=== PATIENT | female | born 1935 | race Caucasian/White ===

== ENCOUNTER 2019-12-04 04:34 | Inpatient (IN) | payer MEDICARE, SELFPAY ==
[~2019-12-04] VITALS: Ht 167.6 cm; Wt 65.8 kg
[2019-12-04 04:55] LABS: BASOPHILS 0.2 % (0-2); EOSINOPHILS 1.4 % (0-7); HEMATOCRIT 47.6 % (36.0-48.0); HEMOGLOBIN 16.2 g/dL (12-16); IMMATURE GRANULOCYTES 0.4 % (0-5); LYMPHOCYTES 15.4 % (15-50); MCH 32.1 pg (26.0-34.0); MCV 94.4 fL (80.0-100.0); MEAN PLATELET VOLUME 10.4 fL (7.4-10.4); MONOCYTES 10.7 % (2-11); NEUTROPHILS 71.9 % (40-80); PLATELET COUNT 269 10x3/uL (130-400); RBC 5.04 10x6/uL (4.00-5.40); RDW 13.7 % (11.5-14.5); WBC 10.5 10x3/uL (4.8-10.8)
--- NOTE | 2019-12-04 05:15 | NUR ---
PT LEFT ED VIA STRETCHER FOR CT
[2019-12-04 05:21] LABS: APTT 26.1 SECONDS (22.8-39.4); INR 1.04 (0.85-1.17); PROTIME 13.6 SECONDS (11.6-15.0)
--- NOTE | 2019-12-04 05:28 | NUR ---
PT RETURNED TO ED VIA STRETCHER FROM CT
[2019-12-04 05:32] LABS: CALC OSMOLALITY 295 mosm/kg (275-300); CALCIUM 8.7 mg/dL (8.5-10.1); CARBON DIOXIDE 27.9 mmol/L (21.0-32.0); CHLORIDE - SERUM 102 mmol/L (98-107); CREATININE - SERUM 1.3 mg/dL (0.6-1.3); GLUCOSE 115 mg/dL (74-106); POTASSIUM - SERUM 3.5 mmol/L (3.5-5.1); SODIUM 139 mmol/L (136-145); UREA NITROGEN 59 mg/dL (7-18); eGFR NON AFRICAN AMERICAN 41 mL/min (90-120)
[2019-12-04 05:50] LABS: ALBUMIN 3.3 g/dL (3.4-5.0); ALKALINE PHOSPHATASE 91 U/L (30-120); ALT (SGPT) 53 U/L (10-68); BILIRUBIN - TOTAL 0.89 mg/dL (0.2-1.3); CREATINE KINASE 282 UL (21-215); LIPASE 110 U/L (73-393); MAGNESIUM - SERUM 2.6 mg/dL (1.8-2.4); PRO BNP 2038 pg/mL (0-450); PROTEIN - SERUM 7.4 g/dL (6.4-8.2); THYROID STIMULATING HORMONE 1.76 uIU/mL (0.36-3.74); TROPONIN-I 0.054 ng/mL (0.000-0.060)
[2019-12-04 05:51] LABS: CKMB 2.6 U/L (0.0-3.6)
[2019-12-04] MEDS ORDERED: METOPROLOL TART25 MG (06:34)
[2019-12-04 06:35] VITALS: BP 159/95
--- NOTE | 2019-12-04 07:33 | NUR ---
RECEIVED PATIENT FROM ER, VIA STRETCHER. ACCOMPANIED BY FAMILY. ALERT AND ORIENTED. C/O PAIN TO LOWER BACK. NO S/S OF ACUTE DISTRESS NOTED. VITALS STABLE. IV TO LEFT AC, SL. SITE PATENT WITHOUT REDNESS OR SWELLING. TROPONIN 0.054 THIS AM. DENIES ANY NEEDS AT THIS TIME. CALL LIGHT IN REACH. WILL CONTINUE TO MONITOR.
[2019-12-04 12:08] LABS: NITRITE NEGATIVE (NEGATIVE); SPECIFIC GRAVITY 1.015 (1.005-1.020)
[2019-12-04 12:09] LABS: BILIRUBIN NEGATIVE (NEGATIVE); GLUCOSE NEGATIVE (NEGATIVE); KETONE NEGATIVE (NEGATIVE)
[2019-12-04 12:10] LABS: BACTERIA MANY /hpf (NEGATIVE); EPITHELIAL CELLS 0-5 /hpf (0-5); RED CELLS - URINE 0-5 /hpf (0-5); WHITE CELLS - URINE 0-5 /hpf (NEGATIVE)
[2019-12-04 12:37] VITALS: BP 135/67
[2019-12-04 16:47] VITALS: BP 151/63
[2019-12-04 17:07] VITALS: BP 108/65; BMI 23.4
[2019-12-04 20:00] VITALS: BP 152/61
--- NOTE | 2019-12-04 21:35 | NUR ---
LYING IN BED. ALERT AND ORIENTED X4. C.O PAIN IN BACK. MEDICATED WITH MORPHINE AND ZOFRAN PER ORDER. SALINE LOCK NOTED TO LT AC. TELEMETRY SHOWS SR WITH RATE OF 75. RESP EVEN AND NONLABORED. SR ELEVATED X2. CL IN REACH. BED ALARM IN USE.
[2019-12-04] MEDS ORDERED: LOPRESSOR25 MG PO (23:14)
[2019-12-05] VITALS: BP 142/66
--- NOTE | 2019-12-05 01:45 | NUR ---
BED BATH GIVEN AND COMPLETE LINEN CHANGE PERFORMED. DAUGHTER AT BEDSIDE. CL IN REACH. NO DISTRESS. PUREWICK APPLIED FOR URINARY INCONT.
[2019-12-05 04:00] VITALS: BP 182/71
[2019-12-05 05:21] LABS: BASOPHILS 0.2 % (0-2); EOSINOPHILS 2.6 % (0-7); HEMATOCRIT 42.3 % (36.0-48.0); HEMOGLOBIN 14.5 g/dL (12-16); IMMATURE GRANULOCYTES 0.4 % (0-5); LYMPHOCYTES 20.9 % (15-50); MCH 32.9 pg (26.0-34.0); MCHC 34.3 g/dL (31.0-37.0); MCV 95.9 fL (80.0-100.0); MEAN PLATELET VOLUME 9.9 fL (7.4-10.4); MONOCYTES 11.3 % (2-11); NEUTROPHILS 64.6 % (40-80); PLATELET COUNT 225 10x3/uL (130-400); RBC 4.41 10x6/uL (4.00-5.40); RDW 13.8 % (11.5-14.5); WBC 8.5 10x3/uL (4.8-10.8)
[2019-12-05 05:32] LABS: ALBUMIN 2.7 g/dL (3.4-5.0); BILIRUBIN - TOTAL 0.6 mg/dL (0.2-1.3); CALCIUM 8.8 mg/dL (8.5-10.1); CARBON DIOXIDE 29.5 mmol/L (21.0-32.0); CREATININE - SERUM 1.1 mg/dL (0.6-1.3); POTASSIUM - SERUM 3.5 mmol/L (3.5-5.1); PROTEIN - SERUM 6.4 g/dL (6.4-8.2)
[2019-12-05 09:10] VITALS: BP 111/68
[2019-12-05 12:40] VITALS: BP 148/59
[2019-12-05 13:46] VITALS: BMI 23.4
[2019-12-05 17:15] VITALS: BP 123/63
--- NOTE | 2019-12-05 19:10 | NUR ---
PT LYING IN BED. BED IN LOW SIDE RAILS X2. BED ALARM ON. CL IN REACH. BEDSIDE SHIFT REPORT RECIEVED. RESP EVEN AND UNLABORED. PUREWICK IN PLACE. LUNGS CLEAR. BOWEL ACTIVE X4. WILL CONTINUE TO MONITOR.
[2019-12-05 20:00] VITALS: BP 131/65
[2019-12-06] VITALS: BP 136/76
--- NOTE | 2019-12-06 03:42 | NUR ---
I have reviewed this patient and I concur with the Shift Assessment completed by the Licensed Practical Nurse today this shift.
[2019-12-06 04:00] VITALS: BP 150/81
[2019-12-06 06:56] LABS: BASOPHILS 0.2 % (0-2); EOSINOPHILS 2.1 % (0-7); HEMATOCRIT 43.6 % (36.0-48.0); HEMOGLOBIN 14.3 g/dL (12-16); IMMATURE GRANULOCYTES 0.4 % (0-5); LYMPHOCYTES 19.4 % (15-50); MCH 31.9 pg (26.0-34.0); MCHC 32.8 g/dL (31.0-37.0); MCV 97.3 fL (80.0-100.0); MONOCYTES 12.1 % (2-11); NEUTROPHILS 65.8 % (40-80); PLATELET COUNT 212 10x3/uL (130-400); RBC 4.48 10x6/uL (4.00-5.40); RDW 13.7 % (11.5-14.5); WBC 8.2 10x3/uL (4.8-10.8)
[2019-12-06 07:06] LABS: ANION GAP 8.9 mmol/L (8-16); BILIRUBIN - TOTAL 0.63 mg/dL (0.2-1.3); CALCIUM 8.6 mg/dL (8.5-10.1); CARBON DIOXIDE 29.9 mmol/L (21.0-32.0); POTASSIUM - SERUM 3.8 mmol/L (3.5-5.1); PROTEIN - SERUM 6.1 g/dL (6.4-8.2)
--- NOTE | 2019-12-06 07:40 | NUR ---
I have reviewed this patient and I concur with the Shift Assessment completed by the Licensed Practical Nurse today this shift.
[2019-12-06 11:05] VITALS: BP 201/85
--- NOTE | 2019-12-06 13:08 | NUR ---
Nutrition follow-up: Pt NPO for kyphoplasty today Labs reviewed Wt: 145# RDN will monitor patients diet advancement and tolerance post- surgery. Following.
--- NOTE | 2019-12-06 18:50 | NUR ---
PATIENT AND DAUGHTER STILL WAITING TO GO TO SURGERY AT THIS TIME. PATIENT HAS NO IV AND DOESNT WANT IT STARTED UNTIL SURGERY.
[2019-12-06 18:58] VITALS: BP 130/70
--- NOTE | 2019-12-06 19:30 | NUR ---
PT SITTING UP IN BED WITHOUT DISTRESS, AOX4. DAUGHTER AT BEDSIDE. WAITING FOR SURGERY. REFUSES TO LET THIS NURSE PLACE IV, STATES SHE WANTS TO BE "KNOCKED OUT" FIRST. PUREWICK IN PLACE. DENIES NEEDS. CL IN REACH, WILL CTM
[2019-12-06 20:00] VITALS: BP 140/75
--- NOTE | 2019-12-06 20:00 | NUR ---
PT TAKEN TO SURGERY AT THIS TIME
[2019-12-06 21:42] VITALS: BP 164/67
--- NOTE | 2019-12-06 21:45 | NUR ---
PT BACK FROM SURGERY, SLEEPY. VSS. DENIES PAIN AT THIS TIME. PUREWICK AND TELE PLACED BACK ON PT. 22G IV LEFT WRIST. WILL CTM
[2019-12-07] VITALS: BP 134/71
--- NOTE | 2019-12-07 02:00 | NUR ---
PT HAD TURNED ON SIDE AND PUREWICK CAME OUT. VOIDED IN BED. CHANGED LINENS, PROVIDED MARIANGEL CARE, PLACED NEW PUREWICK. PT BUTTOCKS AND COCCYX EXCORIATED. PLACED CREAM ALL OVER. COMPLAINS OF PAIN TO RIGHT ANKLE ONLY. PLACED ICE PACK OVER ANKLE. DENIES OTHER NEEDS. CL IN REACH, WILL CTM
[2019-12-07 04:00] VITALS: BP 144/65
--- NOTE | 2019-12-07 05:00 | NUR ---
PT STATES RIGHT ANKLE HURTS, RATES PAIN 5/10. SLIGHTL SWOLLEN. PROPPED ON PILLOW, PLACED ICE ON ANKLE AND GAVE NORCO. DENIES OTHER NEEDS, WILL CTM
[2019-12-07 05:02] LABS: BASOPHILS 0.2 % (0-2); EOSINOPHILS 0.5 % (0-7); HEMATOCRIT 42.7 % (36.0-48.0); HEMOGLOBIN 13.8 g/dL (12-16); IMMATURE GRANULOCYTES 0.5 % (0-5); LYMPHOCYTES 10.9 % (15-50); MCH 31.6 pg (26.0-34.0); MCHC 32.3 g/dL (31.0-37.0); MCV 97.7 fL (80.0-100.0); MEAN PLATELET VOLUME 9.8 fL (7.4-10.4); MONOCYTES 8.8 % (2-11); NEUTROPHILS 79.1 % (40-80); PLATELET COUNT 187 10x3/uL (130-400); RBC 4.37 10x6/uL (4.00-5.40); RDW 13.6 % (11.5-14.5)
[2019-12-07 05:22] LABS: WBC 11.1 10x3/uL (4.8-10.8)
[2019-12-07 05:35] LABS: ALBUMIN 2.7 g/dL (3.4-5.0); ANION GAP 7.8 mmol/L (8-16); BILIRUBIN - TOTAL 0.77 mg/dL (0.2-1.3); CALCIUM 8.7 mg/dL (8.5-10.1); CARBON DIOXIDE 31.3 mmol/L (21.0-32.0); CREATININE - SERUM 0.9 mg/dL (0.6-1.3); POTASSIUM - SERUM 4.1 mmol/L (3.5-5.1); PROTEIN - SERUM 6.1 g/dL (6.4-8.2)
[2019-12-07 09:41] VITALS: BP 169/70
--- NOTE | 2019-12-07 12:38 | NUR ---
Rehab Note- Acute Inpatient REhab prescreen order received. THe patient had kyphoplasty procedure 12/05, will await and see the patient's functional mobility post procedure. Will continue to follow at this time. Thank you for this referral! Kelley Carbajal RN Clinical Liaison, [facility] Rehab
--- NOTE | 2019-12-07 13:08 | MORECARE ---
CASE MANAGEMENT DISCHARGE SUMMARY PATIENT: JOSHUA CARO UNIT: [id number] ADM DATE: 12/04/19 AGE: 84 : 35 SEX: F ROOM/BED: D.2210 AUTHOR: NISREENDOC PHYSICIAN: REFERRING PHYSICIAN: KENNEDY MADDEN DO DATE OF SERVICE: 12/07/19 Discharge Plan Patient Name: JOSHUA CARO Facility: [facility]:[place] : 1935 Planned Disposition: Inpatient Rehab Anticipated Discharge Date: Discharge Date: Expected LOS: Initial Reviewer: [email or web address] Initial Review Date: 12/04/2019 Generated: 12/07/19 2:07 pm Comments DCP- Discharge Planning Updated by [email or web address]: Guerita Smalls on 12/07/19 12:[address] Patient Name: JOSHUA CARO Admission Status: ER Accout number: [id number] Admission Date: 12-04-2019 : 1935 Admission Diagnosis:OTH FRACTURE OF T11-T12 VERTEBRA, INIT FOR CLOS FX Attending: KENNEDY MADDEN Current LOS: 3 Anticipated DC Date: Planned Disposition: Inpatient Rehab Primary Insurance: MEDICARE PART A ONLY Discharge Planning Comments: CM met with patient & daughter to complete initial dc planning assessment. CM educated patient on the CM role and verbal consent given by patient to complete assessment. Patient lives at with her daughter where she was independent with her care. At discharge patient plans to return home and feels this is a safe discharge. CM discussed availability of home health, rehab services, and medical equipment. Patient and daughter would like inpatient rehab at [facility]. The daughter works for [employer] and they want a private room if possible. IMM served and explained. NENO signed. I also have sent the referral over to [facility]. The patient has a walker, cane and uses grab bars in the shower. Patient denied known discharge needs at this time. CM will continue to follow and will assist as needed with dc plans/needs. Furnace Converter: Guerita Smalls DCPIA - Discharge Planning Initial Assessment Updated by [email or web address]: Guerita Smalls on 12/07/19 1:00 pm * Is the patient Alert and Oriented? Yes * How many steps to enter\exit or inside your home? * PCP NONE DR SAL'S PRODUCTION TECH * Pharmacy [facility] * Preadmission Environment Home with Family * ADLs Independent * Equipment Cane Grab Bars Rolling Walker * List name and contact numbers for known caregivers / representatives who currently or will assist patient after discharge: TRUONG CARO ( DAUGHTER) [phone] * Verbal permission to speak to the caregivers and representatives has been obtained from the patient. N/A * Community resources currently utilized None * Additional services required to return to the preadmission environment? Yes * Can the patient safely return to the preadmission environment? No * Has this patient been hospitalized within the prior 30 days at any hospital? No External Providers External Provider: [facility] Contact Date: Service Request Date: Service Type: Resolution: Reviewer: Comments: Coverage Notice Reviewer: [email or web address] Waqas Smalls Notice Issued Date-Time: 12/07/2019 12:50 Notice Type: IM Discharge Notice Notice Delivered To: Family Member Relationship to Patient: Daughter Clinical Information Systems Director Name: BONNIE Delivery Method: HAND - Hand Delivered Ceci Days: Prior Verbal Notification: Recipient Understood Notice: Yes Recipient Signature: Yes Med Rec Note Co-signed by Attending: Coverage Notice Comment: IMM Reviewer: [email or web address] Waqas Smalls Notice Issued Date-Time: 12/07/2019 12:50 Notice Type: Patient Choice Letter Notice Delivered To: Family Member Relationship to Patient: Daughter Clinical Information Systems Director Name: BONNIE Delivery Method: HAND - Hand Delivered Ceci Days: Prior Verbal Notification: Recipient Understood Notice: Yes Recipient Signature: Yes Med Rec Note Co-signed by Attending: Coverage Notice Comment: Patient Name: JOSHUA CAOR Page [phone] at 1308 All edits/amendments must be made on the electronic document DICTATION DATE: 12/07/19 1307 INDUSTRIAL DESIGN ENGINEER: SANJANA 12/07/19 1307 RPT#: [id number] DC DATE: STATUS: ADM IN [facility] [address] [place] [address] END OF REPORT
[2019-12-07 13:45] VITALS: BP 173/67
[2019-12-07 16:00] VITALS: BP 211/80
--- NOTE | 2019-12-07 16:44 | NUR ---
OT NOTE: PT COMPLETED BED MOB TASKS WITH SBA. PT USED SIDE RAILS. PT COMPLETED SUPINE TO SIT WITH MIN A. PT COMPLETED UE AROM AXS. [id number] THANK YOU,MEY SAMSON
--- NOTE | 2019-12-07 19:52 | NUR ---
PATIENT IV CLOTTED. REMOVED WITH CATH TIP INTACT. CALL LIGHT WITHIN REACH. FAMILY AT BEDSIDE.
[2019-12-07 20:00] VITALS: BP 149/74
--- NOTE | 2019-12-07 20:30 | NUR ---
PT LYING IN BED SLEEPING WITHOUT DISTRESS, DAUGHTER AT BEDSIDE. LET DAUGHTER KNOW PT HAD MELATONIN ORDERED AND IF SHE WAKES UP I WILL BRING IT FOR HER, VERBALIZED UNDERSTANDING. DAUGHTER STATES SHE WILL NOT BE HERE BETWEEN 8A-3P TOMORROW AND IF ANYTHING IS DECIDED ABOUT HER MOTHER AND REHAB TO CALL HER CELL WHICH IS ON CHART OR WORK NUMBER [phone]
--- NOTE | 2019-12-07 23:58 | NUR ---
DAUGHTER REFUSED VITALS, WOULD LIKE TO LET PT KEEP SLEEPING
[2019-12-08 04:00] VITALS: BP 149/78
[2019-12-08 06:27] LABS: BASOPHILS 0.3 % (0-2); EOSINOPHILS 2.7 % (0-7); HEMATOCRIT 41.9 % (36.0-48.0); HEMOGLOBIN 13.7 g/dL (12-16); IMMATURE GRANULOCYTES 0.4 % (0-5); LYMPHOCYTES 24.8 % (15-50); MCH 31.8 pg (26.0-34.0); MCHC 32.7 g/dL (31.0-37.0); MCV 97.2 fL (80.0-100.0); MEAN PLATELET VOLUME 10.3 fL (7.4-10.4); NEUTROPHILS 61.8 % (40-80); PLATELET COUNT 196 10x3/uL (130-400); RBC 4.31 10x6/uL (4.00-5.40); RDW 13.8 % (11.5-14.5)
[2019-12-08 06:30] LABS: WBC 7.4 10x3/uL (4.8-10.8)
[2019-12-08 07:02] LABS: ALBUMIN 2.6 g/dL (3.4-5.0); ANION GAP 9.8 mmol/L (8-16); BILIRUBIN - TOTAL 0.53 mg/dL (0.2-1.3); CALCIUM 8.7 mg/dL (8.5-10.1); CARBON DIOXIDE 29.1 mmol/L (21.0-32.0); CREATININE - SERUM 0.8 mg/dL (0.6-1.3); POTASSIUM - SERUM 3.9 mmol/L (3.5-5.1); PROTEIN - SERUM 6.2 g/dL (6.4-8.2)
--- NOTE | 2019-12-08 08:10 | NUR ---
PT RESTING IN QUIETLY IN BED. RESP EVEN AND UNLABORED. BANDAIDS AND STERI STRIP INTACT TO LOWER BACK. DENIES FURTHER NEEDS AT THIS TIME. CL WITHIN REACH. ENCOURAGED TO CALL WITH NEEDS. CONTINUE POC
[2019-12-08 08:45] VITALS: BP 180/72
[2019-12-08 13:15] VITALS: BP 183/71
[2019-12-08 17:46] VITALS: BP 176/105
[2019-12-08 20:00] VITALS: BP 175/83
[2019-12-08 20:09] VITALS: BP 149/91
--- NOTE | 2019-12-08 20:10 | NUR ---
LYING IN BED. ALERT AND ORIENTED. CONFUSED AT TIMES. RESP NONLABORED. C/O PAININ RT ANKLE 5 ON PAIN SCALE. BRUISES NOTED TO BUE AND RT ANKLE. MEDICATED WITH NORCO. BANDAID X2 AND STERI STRIPS NOTED TO BACK. TELEMETRY SHOWS SR WITH RATE OF 76. NO IV ACCESS. DAUGHTER AT BEDSIDE. KATHRYN ALARM ON. CL IN REACH.
[2019-12-09] VITALS (7 sets, daily range): BP systolic 128–216; BP diastolic 71–82
--- NOTE | 2019-12-09 03:42 | NUR ---
HAS RESTED WELL THIS SHIFT. DAUGHTER AT BEDSIDE. NO DISTRESS. RESP NONLABORED. CL IN REACH.
[2019-12-09 05:57] LABS: BASOPHILS 0.2 % (0-2); EOSINOPHILS 2.5 % (0-7); HEMATOCRIT 41.3 % (36.0-48.0); HEMOGLOBIN 13.3 g/dL (12-16); IMMATURE GRANULOCYTES 0.4 % (0-5); LYMPHOCYTES 21.7 % (15-50); MCH 31.4 pg (26.0-34.0); MCHC 32.2 g/dL (31.0-37.0); MCV 97.4 fL (80.0-100.0); MEAN PLATELET VOLUME 10.4 fL (7.4-10.4); NEUTROPHILS 64.2 % (40-80); PLATELET COUNT 169 10x3/uL (130-400); RBC 4.24 10x6/uL (4.00-5.40); RDW 13.9 % (11.5-14.5); WBC 8.4 10x3/uL (4.8-10.8)
[2019-12-09 06:37] LABS: ALBUMIN 2.5 g/dL (3.4-5.0); ANION GAP 9.1 mmol/L (8-16); BILIRUBIN - TOTAL 0.55 mg/dL (0.2-1.3); CALCIUM 8.4 mg/dL (8.5-10.1); CARBON DIOXIDE 27.5 mmol/L (21.0-32.0); POTASSIUM - SERUM 3.6 mmol/L (3.5-5.1); PROTEIN - SERUM 5.8 g/dL (6.4-8.2)
--- NOTE | 2019-12-09 10:40 | NUR ---
PT UP IN CHAIR AT BEDSIDE. RESP EVEN ADN UNLABORED. DENIES PAIN AT THIS TIME. DRESSING C/D/I TO BACK. PT WITHOUT IV ACCESS AT THIS TIME. DENIES NEEDS AT THIS TIME. CL WITHIN REACH. ENCOURAGED TO CALL WITH NEEDS. CONTINUE POC
--- NOTE | 2019-12-09 16:30 | NUR ---
PT SITTING UP IN BED, DENIES PAIN. NEHAL STATED THAT SHE NO LONGER WANTS HER MOTHER TO GO TO [facility] AT [facility] FOR REHAB, SHE SAID THAT SHE CALLED AND TALKED TO SOMEONE ON TUESDAY. I SPOKE WITH THE LOADING MACHINE OPERATOR HELPER AND THEY HAVE ALREADY SET UP DISCHARGE FOR REHAB AT [facility]. SHE WOULD LIKE FOR PT TO GO TO REHAB HERE. I CONTACTED LOADING MACHINE OPERATOR HELPER AND LEFT MESSAGE. I INFORMED PT AND DAUGHTER THAT THE NURSE WOULD CONTACT HER TOMORROW WITH INFORMATION.
--- NOTE | 2019-12-09 16:55 | MORECARE ---
CASE MANAGEMENT DISCHARGE SUMMARY PATIENT: JOSHUA CARO UNIT: [id number] ADM DATE: 12/04/19 AGE: 84 : 35 SEX: F ROOM/BED: D.2210 AUTHOR: NISREEN,DOC PHYSICIAN: REFERRING PHYSICIAN: KENNEDY MADDEN DO DATE OF SERVICE: 12/09/19 Discharge Plan Patient Name: JOSHUA CARO Facility: [facility]:[place] : 1935 Planned Disposition: Inpatient Rehab Anticipated Discharge Date: Discharge Date: Expected LOS: Initial Reviewer: [email or web address] Initial Review Date: 12/04/2019 Generated: 12/09/19 5:54 pm Comments DCP- Discharge Planning Updated by [id number]: Miriam Ware on 12/09/19 3:[address] CM received notification that patient / daughter is wanting Inpatient rehab here at [facility]. CM checked orders and a rehab prescreen is in along with PT / OT. CM is not sure if patient's insurance covers rehab therapy. CM did speak to Lizzeth with [facility] today and she stated they would re-eval on Tuesday. DCP- Discharge Planning Updated by [email or web address]: Guerita Slim on 12/07/19 12:[address] Patient Name: JOSHUA CARO Admission Status: ER Accout number: [id number] Admission Date: 12-04-2019 : 1935 Admission Diagnosis:OTH FRACTURE OF T11-T12 VERTEBRA, INIT FOR CLOS FX Attending: KENNEDY MADDEN Current LOS: 3 Anticipated DC Date: Planned Disposition: Inpatient Rehab Primary Insurance: MEDICARE PART A ONLY Discharge Planning Comments: CM met with patient & daughter to complete initial dc planning assessment. CM educated patient on the CM role and verbal consent given by patient to complete assessment. Patient lives at with her daughter where she was independent with her care. At discharge patient plans to return home and feels this is a safe discharge. CM discussed availability of home health, rehab services, and medical equipment. Patient and daughter would like inpatient rehab at [facility]. The daughter works for [employer] and they want a private room if possible. IMM served and explained. NENO signed. I also have sent the referral over to [facility]. The patient has a walker, cane and uses grab bars in the shower. Patient denied known discharge needs at this time. CM will continue to follow and will assist as needed with dc plans/needs. Metallurgical Lab Technician: Guerita Smalls DCPIA - Discharge Planning Initial Assessment Updated by [email or web address]: Guerita Smalls on 12/07/19 1:00 pm * Is the patient Alert and Oriented? Yes * How many steps to enter\exit or inside your home? * PCP NONE DR SAL'S ELECTRONIC TECHNOLOGIST * [facility] * Preadmission Environment Home with Family * ADLs Independent * Equipment Cane Grab Bars Rolling Walker * List name and contact numbers for known caregivers / representatives who currently or will assist patient after discharge: TRUONG CARO ( DAUGHTER) [phone] * Verbal permission to speak to the caregivers and representatives has been obtained from the patient. N/A * Community resources currently utilized None * Additional services required to return to the preadmission environment? Yes * Can the patient safely return to the preadmission environment? No * Has this patient been hospitalized within the prior 30 days at any hospital? No Coverage Notice Reviewer: [id number] Waqas Smalls Notice Issued Date-Time: 12/07/2019 12:50 Notice Type: IM Discharge Notice Notice Delivered To: Family Member Relationship to Patient: Daughter Nut Former Name: BONNIE Delivery Method: HAND - Hand Delivered Ceci Days: Prior Verbal Notification: Recipient Understood Notice: Yes Recipient Signature: Yes Med Rec Note Co-signed by Attending: Coverage Notice Comment: IMM Reviewer: [id number] Waqas Smalls Notice Issued Date-Time: 12/07/2019 12:50 Notice Type: Patient Choice Letter Notice Delivered To: Family Member Relationship to Patient: Daughter Nut Former Name: BONNIE Delivery Method: HAND - Hand Delivered Ceci Days: Prior Verbal Notification: Recipient Understood Notice: Yes Recipient Signature: Yes Med Rec Note Co-signed by Attending: Coverage Notice Comment: Last DP export: 12/07/19 12:08 p Patient Name: JOSHUA CARO Page [id number] at 1656 All edits/amendments must be made on the electronic document DICTATION DATE: 12/09/191653 BED BUG EXTERMINATOR: SANJANA 12/09/191653 RPT#: [id number] DC DATE: STATUS: ADM IN [facility] [address] [place] [address] END OF REPORT
--- NOTE | 2019-12-09 18:40 | MORECARE ---
CASE MANAGEMENT DISCHARGE SUMMARY PATIENT: JOSHUA CARO UNIT: [id number] ADM DATE: 12/04/19 AGE: 84 : 35 SEX: F ROOM/BED: D.2210 AUTHOR: NISREEN,DOC PHYSICIAN: REFERRING PHYSICIAN: KENNEDY MADDEN DO DATE OF SERVICE: 12/09/19 Discharge Plan Patient Name: JOHSUA CARO Facility: [facility]:[place] : 1935 Planned Disposition: Inpatient Rehab Anticipated Discharge Date: Discharge Date: Expected LOS: Initial Reviewer: [email or web address] Initial Review Date: 12/04/2019 Generated: 12/09/19 7:39 pm Comments DCP- Discharge Planning Updated by [email or web address]: Miriam Ware on 12/09/19 3:[address] CM received notification that patient / daughter is wanting Inpatient rehab here at [facility]. CM checked orders and a rehab prescreen is in along with PT / OT. CM is not sure if patient's insurance covers rehab therapy. CM did speak to Lizzeth with [facility] today and she stated they would re-eval on Tuesday. DCP- Discharge Planning Updated by [email or web address]: Guerita Slim on 12/07/19 12:[address] Patient Name: JOSHUA CARO Admission Status: ER Accout number: [id number] Admission Date: 12-04-2019 : 1935 Admission Diagnosis:OTH FRACTURE OF T11-T12 VERTEBRA, INIT FOR CLOS FX Attending: KENNEDY MADDEN Current LOS: 3 Anticipated DC Date: Planned Disposition: Inpatient Rehab Primary Insurance: MEDICARE PART A ONLY Discharge Planning Comments: CM met with patient & daughter to complete initial dc planning assessment. CM educated patient on the CM role and verbal consent given by patient to complete assessment. Patient lives at with her daughter where she was independent with her care. At discharge patient plans to return home and feels this is a safe discharge. CM discussed availability of home health, rehab services, and medical equipment. Patient and daughter would like inpatient rehab at [facility]. The daughter works for [employer] and they want a private room if possible. IMM served and explained. NENO signed. I also have sent the referral over to [facility]. The patient has a walker, cane and uses grab bars in the shower. Patient denied known discharge needs at this time. CM will continue to follow and will assist as needed with dc plans/needs. Flotation Tender: Guerita Smalls DCPIA - Discharge Planning Initial Assessment Updated by [email or web address]: Guerita Smalls on 12/07/19 1:00 pm * Is the patient Alert and Oriented? Yes * How many steps to enter\exit or inside your home? * PCP NONE DR SAL'S URINALYSIS TECHNICIAN * [facility] * Preadmission Environment Home with Family * ADLs Independent * Equipment Cane Grab Bars Rolling Walker * List name and contact numbers for known caregivers / representatives who currently or will assist patient after discharge: TRUONG CARO ( DAUGHTER) [phone] * Verbal permission to speak to the caregivers and representatives has been obtained from the patient. N/A * Community resources currently utilized None * Additional services required to return to the preadmission environment? Yes * Can the patient safely return to the preadmission environment? No * Has this patient been hospitalized within the prior 30 days at any hospital? No Coverage Notice Reviewer: [id number] Waqas Smalls Notice Issued Date-Time: 12/07/2019 12:50 Notice Type: IM Discharge Notice Notice Delivered To: Family Member Relationship to Patient: Daughter Computer Equipment Repairer Name: BONNIE Delivery Method: HAND - Hand Delivered Ceci Days: Prior Verbal Notification: Recipient Understood Notice: Yes Recipient Signature: Yes Med Rec Note Co-signed by Attending: Coverage Notice Comment: IMM Reviewer: [id number] Waqas Smalls Notice Issued Date-Time: 12/07/2019 12:50 Notice Type: Patient Choice Letter Notice Delivered To: Family Member Relationship to Patient: Daughter Computer Equipment Repairer Name: BONNIE Delivery Method: HAND - Hand Delivered Ceci Days: Prior Verbal Notification: Recipient Understood Notice: Yes Recipient Signature: Yes Med Rec Note Co-signed by Attending: Coverage Notice Comment: Last DP export: 12/09/19 3:55 p Patient Name: JOSHUA CARO Page [phone] at 1840 All edits/amendments must be made on the electronic document DICTATION DATE: 12/09/191838 REAL ESTATE ADMINISTRATOR: SANJANA 12/09/191838 RPT#: [id number] DC DATE: STATUS: ADM IN [facility] [address] [place] [id number] END OF REPORT
--- NOTE | 2019-12-09 19:55 | NUR ---
ALERT AND ORIENTED TO SELF AND PLACE. CONFUSED AT TIMES. DAUGHTER AT BEDSIDE. RESP EVEN AND NONLABORED. RATES PAIN IN BACK AND RT ANKLE 4. MEDICATED WITH NORCO ORDERED. PUREWICK CATH IN PLACE WITH DARK YELLOW URINE NOTED. TELEMETRY SHOWS SR WITH RATE OF 76. NO IV ACCESS. BRUISES NOTED TO BUE AND RT FOOT. SR ELEVATED X2. CL IN REACH. NO DISTRESS. BED ALARM IN USE FOR PT SAFETY.
[2019-12-10] VITALS: BP 145/74
--- NOTE | 2019-12-10 03:00 | NUR ---
LYING IN BED WITH EYES CLOSED. RESP NONLABORED. DAUGHTER AT BEDSIDE. NO DISTRESS. CL IN REACH.
[2019-12-10 04:00] VITALS: BP 117/75
--- NOTE | 2019-12-10 04:54 | NUR ---
MEDICATED WITH NORCO FOR C/O BACK AND HIP PAIN. CL IN REACH. DAUGHTER AT BEDSIDE
[2019-12-10 05:01] LABS: BASOPHILS 0.1 % (0-2); EOSINOPHILS 0.5 % (0-7); HEMATOCRIT 40.6 % (36.0-48.0); HEMOGLOBIN 13.5 g/dL (12-16); IMMATURE GRANULOCYTES 0.7 % (0-5); MCH 31.9 pg (26.0-34.0); MCHC 33.3 g/dL (31.0-37.0); MEAN PLATELET VOLUME 10.4 fL (7.4-10.4); MONOCYTES 9.7 % (2-11); PLATELET COUNT 157 10x3/uL (130-400); RBC 4.23 10x6/uL (4.00-5.40); RDW 13.7 % (11.5-14.5)
[2019-12-10 05:10] LABS: WBC 13.4 10x3/uL (4.8-10.8)
[2019-12-10 05:30] LABS: ALBUMIN 2.5 g/dL (3.4-5.0); ANION GAP 7.5 mmol/L (8-16); BILIRUBIN - TOTAL 1.01 mg/dL (0.2-1.3); CALCIUM 8.3 mg/dL (8.5-10.1); CARBON DIOXIDE 28.1 mmol/L (21.0-32.0); CREATININE - SERUM 0.9 mg/dL (0.6-1.3); POTASSIUM - SERUM 3.6 mmol/L (3.5-5.1)
--- NOTE | 2019-12-10 06:37 | NUR ---
LYING IN BED. DAUGHTER AT BEDSIDE. PT TALKING TO DAUGHTER BUT DROWSY. NO DISTRESS. CL IN REACH.
[2019-12-10 08:27] VITALS: BP 149/86
[2019-12-10 10:50] VITALS: Ht 167.6 cm; Wt 65.8 kg
[2019-12-10 12:41] VITALS: BP 137/72
[2019-12-10] MEDS ORDERED: PROTONIX40 MG PO (14:50)
[2019-12-10] MEDS ORDERED: HYDROCODON-ACE1 EA10 PO (14:50)
[2019-12-10] MEDS ORDERED: COLACE100 MG PO (14:50)
[2019-12-10] MEDS ORDERED: ZOFRAN INJ IV (14:50)
[2019-12-10] MEDS ORDERED: MELATONIN 3 MG1 TAB PO (14:50)
[2019-12-10] MEDS ORDERED: ROCEPHIN 1 GM/D51 G1 IV (14:50)
--- NOTE | 2019-12-10 15:17 | NUR ---
OT NOTE: SIMPLE GROOMING IE WASHING FACE AND HANDS WITH SET UP; MOD ASSIST WITH TOILET HYGIENE; WORKED ON GETTING BACK BRACE PULLED DOWN TO APPROPRIATE LEVEL; PT VERY QUITE BUT COOPERATIVE. FAIR STANDING BALANCE WITH USE OF WALKER DUSTY SANDOVAL, OTR/; 150-131
--- NOTE | 2019-12-10 15:17 | MORECARE ---
CASE MANAGEMENT DISCHARGE SUMMARY PATIENT: JOSHUA CARO UNIT: [id number] ADM DATE: 12/04/19 AGE: 84 : 35 SEX: F ROOM/BED: D.2210 AUTHOR: NISREEN,DOC PHYSICIAN: REFERRING PHYSICIAN: KENNEDY MADDEN DO DATE OF SERVICE: 12/10/19 Discharge Plan Patient Name: JOSHUA CARO Facility: [facility]:[place] : 1935 Planned Disposition: Inpatient Rehab Anticipated Discharge Date: Discharge Date: Expected LOS: Initial Reviewer: [email or web address] Initial Review Date: 12/04/2019 Generated: 12/10/19 4:17 pm Comments DCP- Discharge Planning Updated by [id number]: Miriam Ware on 12/09/19 3:[address] CM received notification that patient / daughter is wanting Inpatient rehab here at [facility]. CM checked orders and a rehab prescreen is in along with PT / OT. CM is not sure if patient's insurance covers rehab therapy. CM did speak to Lizzeth with [facility] today and she stated they would re-eval on Tuesday. DCP- Discharge Planning Updated by [email or web address]: Guerita Slim on 12/07/19 12:[address] Patient Name: JOSHUA CARO Admission Status: ER Accout number: [id number] Admission Date: 12-04-2019 : 1935 Admission Diagnosis:OTH FRACTURE OF T11-T12 VERTEBRA, INIT FOR CLOS FX Attending: KENNEDY MADDEN Current LOS: 3 Anticipated DC Date: Planned Disposition: Inpatient Rehab Primary Insurance: MEDICARE PART A ONLY Discharge Planning Comments: CM met with patient & daughter to complete initial dc planning assessment. CM educated patient on the CM role and verbal consent given by patient to complete assessment. Patient lives at with her daughter where she was independent with her care. At discharge patient plans to return home and feels this is a safe discharge. CM discussed availability of home health, rehab services, and medical equipment. Patient and daughter would like inpatient rehab at [facility]. The daughter works for [employer] and they want a private room if possible. IMM served and explained. NENO signed. I also have sent the referral over to [facility]. The patient has a walker, cane and uses grab bars in the shower. Patient denied known discharge needs at this time. CM will continue to follow and will assist as needed with dc plans/needs. Title Vehicle Service Attendant: Guerita Smalls DCPIA - Discharge Planning Initial Assessment Updated by [id number]: Guerita Smalls on 12/07/19 1:00 pm * Is the patient Alert and Oriented? Yes * How many steps to enter\exit or inside your home? * PCP NONE DR SAL'S RUBBER GOODS INSPECTOR TESTER * Pharmacy [facility] * Preadmission Environment Home with Family * ADLs Independent * Equipment Cane Grab Bars Rolling Walker * List name and contact numbers for known caregivers / representatives who currently or will assist patient after discharge: TRUONG CARO ( DAUGHTER) [phone] * Verbal permission to speak to the caregivers and representatives has been obtained from the patient. N/A * Community resources currently utilized None * Additional services required to return to the preadmission environment? Yes * Can the patient safely return to the preadmission environment? No * Has this patient been hospitalized within the prior 30 days at any hospital? No Coverage Notice Reviewer: [id number] Waqas Smalls Notice Issued Date-Time: 12/07/2019 12:50 Notice Type: IM Discharge Notice Notice Delivered To: Family Member Relationship to Patient: Daughter Universal Branch Consultant Name: BONNIE Delivery Method: HAND - Hand Delivered Ceci Days: Prior Verbal Notification: Recipient Understood Notice: Yes Recipient Signature: Yes Med Rec Note Co-signed by Attending: Coverage Notice Comment: IMM Reviewer: [id number] Waqas Smlals Notice Issued Date-Time: 12/07/2019 12:50 Notice Type: Patient Choice Letter Notice Delivered To: Family Member Relationship to Patient: Daughter Universal Branch Consultant Name: BONNIE Delivery Method: HAND - Hand Delivered Ceci Days: Prior Verbal Notification: Recipient Understood Notice: Yes Recipient Signature: Yes Med Rec Note Co-signed by Attending: Coverage Notice Comment: Last DP export: 12/09/19 5:40 p Patient Name: JOSHUA CARO Page [id number] at 1517 All edits/amendments must be made on the electronic document DICTATION DATE: 12/10/19 1501 POLYSOMNOGRAPHY TECH: SANJANA 12/10/19 5058 RPT#: [id number] DC DATE: STATUS: ADM IN [facility] [address] [place] [address] END OF REPORT
--- NOTE | 2019-12-10 15:24 | MORECARE ---
CASE MANAGEMENT DISCHARGE SUMMARY PATIENT: JOSHUA CARO UNIT: [id number] ADM DATE: 12/04/19 AGE: 84 : 35 SEX: F ROOM/BED: D.2210 AUTHOR: NISREEN,DOC PHYSICIAN: REFERRING PHYSICIAN: KENNEDY MADDEN DO DATE OF SERVICE: 12/10/19 Discharge Plan Patient Name: JOSHUA CARO Facility: [facility]:[place] : 1935 Planned Disposition: Inpatient Rehab Anticipated Discharge Date: Discharge Date: Expected LOS: Initial Reviewer: [id number] Initial Review Date: 12/04/2019 Generated: 12/10/19 4:23 pm Comments DCP- Discharge Planning Updated by [id number]: Guerita Smalls on 12/10/19 2:[address] PATIENT WILL BE DISCHARGING TO INPATIENT REHAB AT [facility] TODAY, IMM SERVED AND EXPLAINED. I ATTEPMTED TO CALL THE DAUGHTER, BUT SHE DID NOT ANSWER PATIENT WILL BE DISCHARGING TO INPATINET REHAB AT [facility] DCP- Discharge Planning Updated by [id number]: Miriam Ware on 12/09/19 3:[address] CM received notification that patient / daughter is wanting Inpatient rehab here at [facility]. CM checked orders and a rehab prescreen is in along with PT / OT. CM is not sure if patient's insurance covers rehab therapy. CM did speak to Lizzeth with [facility] today and she stated they would re-eval on Tuesday. DCP- Discharge Planning Updated by [id number]: Guerita Smalls on 12/07/19 12:[address] Patient Name: JOSHUA CARO Admission Status: ER Accout number: [id number] Admission Date: 12-04-2019 : 1935 Admission Diagnosis:OTH FRACTURE OF T11-T12 VERTEBRA, INIT FOR CLOS FX Attending: KENNEDY MADDEN Current LOS: 3 Anticipated DC Date: Planned Disposition: Inpatient Rehab Primary Insurance: MEDICARE PART A ONLY Discharge Planning Comments: CM met with patient & daughter to complete initial dc planning assessment. CM educated patient on the CM role and verbal consent given by patient to complete assessment. Patient lives at with her daughter where she was independent with her care. At discharge patient plans to return home and feels this is a safe discharge. CM discussed availability of home health, rehab services, and medical equipment. Patient and daughter would like inpatient rehab at [facility]. The daughter works for [employer] and they want a private room if possible. IMM served and explained. NENO signed. I also have sent the referral over to [facility]. The patient has a walker, cane and uses grab bars in the shower. Patient denied known discharge needs at this time. CM will continue to follow and will assist as needed with dc plans/needs. Rigger Apprentice: Guerita Smalls DCPIA - Discharge Planning Initial Assessment Updated by [email or web address]: Guerita Smalls on 12/07/19 1:00 pm * Is the patient Alert and Oriented? Yes * How many steps to enter\exit or inside your home? 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 N/A * Community resources currently utilized None * Additional services required to return to the preadmission environment? Yes * Can the patient safely return to the preadmission environment? No * Has this patient been hospitalized within the prior 30 days at any hospital? No Coverage Notice Reviewer: [id number] Waqas Smalls Notice Issued Date-Time: 12/07/2019 12:50 Notice Type: IM Discharge Notice Notice Delivered To: Family Member Relationship to Patient: Daughter Fashion Model Name: BONNIE Delivery Method: HAND - Hand Delivered Ceci Days: Prior Verbal Notification: Recipient Understood Notice: Yes Recipient Signature: Yes Med Rec Note Co-signed by Attending: Coverage Notice Comment: IMM Reviewer: [id number] Waqas Smalls Notice Issued Date-Time: 12/07/2019 12:50 Notice Type: Patient Choice Letter Notice Delivered To: Family Member Relationship to Patient: Daughter Fashion Model Name: BONNIE Delivery Method: HAND - Hand Delivered Ceci Days: Prior Verbal Notification: Recipient Understood Notice: Yes Recipient Signature: Yes Med Rec Note Co-signed by Attending: Coverage Notice Comment: Reviewer: [id number] Smalls Notice Issued Date-Time: 12/10/2019 15:10 Notice Type: IM Discharge Notice Notice Delivered To: Patient Relationship to Patient: Fashion Model Name: Delivery Method: HAND - Hand Delivered Ceci Days: Prior Verbal Notification: Recipient Understood Notice: Yes Recipient Signature: Yes Med Rec Note Co-signed by Attending: Coverage Notice Comment: Last DP export: 12/10/19 2:17 p Patient Name: JOSHUA CARO Page [phone] at 1524 All edits/amendments must be made on the electronic document DICTATION DATE: 12/10/19 1524 SUPERVISOR TREE TRIMMING: SANJANA 12/10/19 1524 RPT#: [id number] DC DATE: STATUS: ADM IN [facility] [address] [place] [address] END OF REPORT
--- NOTE | 2019-12-10 15:50 | NUR ---
OT NOTE: PT COMPLETED SUPINE TO SIT WITH CGA/MIN A. PT COMPLETED EOB SITTING WITH SBA. PT REQUIRED MAX A WITH MEG BACKBRACE. PT COMPLETED ADL MOB WITH R/W WITH CGA. PT C/O PAIN . NURSING AWARE. PT REQUIRED MAX A TO MEG SOCKS. [phone] THANK YOU,MEY SAMSON
[2019-12-10 16:46] VITALS: BP 173/85
--- NOTE | 2019-12-10 18:46 | NUR ---
IV THERAPY RESTARTED TO LEFT FOREARM WITH A 22G TOLERATED WELL. CL IN REACH. BED ALARM ON. WCTM
--- NOTE | 2019-12-11 10:30 | MORECARE ---
CASE MANAGEMENT DISCHARGE SUMMARY PATIENT: JOSHUA CARO UNIT: [id number] ADM DATE: 12/04/19 AGE: 84 : 35 SEX: F ROOM/BED: D.2210 AUTHOR: SOLANGE NIELSON PHYSICIAN: REFERRING PHYSICIAN: KENNEDY MADDEN DO DATE OF SERVICE: 12/11/19 Discharge Plan Patient Name: JOSHUA CARO Facility: [facility]:[place] : 1935 Planned Disposition: Inpatient Rehab Anticipated Discharge Date: Discharge Date: 12/10/2019 Expected LOS: Initial Reviewer: [email or web address] Initial Review Date: 12/04/2019 Generated: 12/11/19 11:29 am Comments DCP- Discharge Planning Updated by [id number]: Guerita Smalls on 12/10/19 2:[address] PATIENT WILL BE DISCHARGING TO INPATIENT REHAB AT [facility] TODAY, IMM SERVED AND EXPLAINED. I ATTEPMTED TO CALL THE DAUGHTER, BUT SHE DID NOT ANSWER PATIENT WILL BE DISCHARGING TO INPATINET REHAB AT [facility] DCP- Discharge Planning Updated by [email or web address]: Miriam Ware on 12/09/19 3:[address] CM received notification that patient / daughter is wanting Inpatient rehab here at [facility]. CM checked orders and a rehab prescreen is in along with PT / OT. CM is not sure if patient's insurance covers rehab therapy. CM did speak to Lizzeth with [facility] today and she stated they would re-eval on Tuesday. DCP- Discharge Planning Updated by [id number]: Guerita Smalls on 12/07/19 12:[address] Patient Name: JOSHUA CARO Admission Status: ER Accout number: [id number] Admission Date: 12-04-2019 : 1935 Admission Diagnosis:OTH FRACTURE OF T11-T12 VERTEBRA, INIT FOR CLOS FX Attending: KENNEDY MADDEN Current LOS: 3 Anticipated DC Date: Planned Disposition: Inpatient Rehab Primary Insurance: MEDICARE PART A ONLY Discharge Planning Comments: CM met with patient & daughter to complete initial dc planning assessment. CM educated patient on the CM role and verbal consent given by patient to complete assessment. Patient lives at with her daughter where she was independent with her care. At discharge patient plans to return home and feels this is a safe discharge. CM discussed availability of home health, rehab services, and medical equipment. Patient and daughter would like inpatient rehab at [facility]. The daughter works for [employer] and they want a private room if possible. IMM served and explained. NENO signed. I also have sent the referral over to [facility]. The patient has a walker, cane and uses grab bars in the shower. Patient denied known discharge needs at this time. CM will continue to follow and will assist as needed with dc plans/needs. Morning News Anchor: Guerita Smalls DCPIA - Discharge Planning Initial Assessment Updated by [email or web address]: Guerita Smalls on 12/07/19 1:00 pm * Is the patient Alert and Oriented? Yes * How many steps to enter\exit or inside your home? 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 N/A * Community resources currently utilized None * Additional services required to return to the preadmission environment? Yes * Can the patient safely return to the preadmission environment? No * Has this patient been hospitalized within the prior 30 days at any hospital? No Coverage Notice Reviewer: [id number] Waqas Smalls Notice Issued Date-Time: 12/07/2019 12:50 Notice Type: IM Discharge Notice Notice Delivered To: Family Member Relationship to Patient: Daughter Mail Clerk Bills Name: BONNIE Delivery Method: HAND - Hand Delivered Ceci Days: Prior Verbal Notification: Recipient Understood Notice: Yes Recipient Signature: Yes Med Rec Note Co-signed by Attending: Coverage Notice Comment: IMM Reviewer: [email or web address] Waqas Smalls Notice Issued Date-Time: 12/07/2019 12:50 Notice Type: Patient Choice Letter Notice Delivered To: Family Member Relationship to Patient: Daughter Mail Clerk Bills Name: BONNIE Delivery Method: HAND - Hand Delivered Ceci Days: Prior Verbal Notification: Recipient Understood Notice: Yes Recipient Signature: Yes Med Rec Note Co-signed by Attending: Coverage Notice Comment: Reviewer: [id number] Hennessyken Notice Issued Date-Time: 12/10/2019 15:10 Notice Type: IM Discharge Notice Notice Delivered To: Patient Relationship to Patient: Mail Clerk Bills Name: Delivery Method: HAND - Hand Delivered Ceci Days: Prior Verbal Notification: Recipient Understood Notice: Yes Recipient Signature: Yes Med Rec Note Co-signed by Attending: Coverage Notice Comment: Last DP export: 12/10/19 2:24 p Patient Name: JOSHUA CARO Page [phone] at 1030 All edits/amendments must be made on the electronic document DICTATION DATE: 12/11/19 1029 TECHNICAL CUSTOMER SUPPORT SPECIALIST: SANJANA 12/11/19 1029 RPT#: [id number] DC DATE:12/10/19 STATUS: DIS IN [facility] [address] [place] [address] END OF REPORT
--- NOTE | 2019-12-11 13:10 | OP ---
PATIENT NAME: JOSHUA CARO MEDICAL RECORD: [id number] :35 LOCATION:D.MS Do221Gloria ADMISSION DATE:12/04/19 SURGEON: VICENTE ZUNIGA MD DATE OF OPERATION: 12/04/2019 PREOPERATIVE DIAGNOSIS: T12 and L1 osteoporotic compression fractures. POSTOPERATIVE DIAGNOSIS: T12 and L1 osteoporotic compression fractures. PROCEDURE: T12 and L1 kyphoplasties. SURGEON: Vicente Zuniga MD DESCRIPTION AND TECHNIQUE: After induction of general endotracheal anesthesia, the patient was rolled prone on chest and hip rolls. The thoracic spine was prepped and draped in the usual sterile fashion as was the lumbar spine. After infiltration of 1:100,000 epinephrine and 1% lidocaine, a stab incision was created at T12 and L1, just lateral to the pedicle and just superior. Each pedicle at T12 and L1 was cannulated with a Jamshidi needle under fluoroscopic control. Bone drill was advanced through each cannula and then a kyphoplasty balloon was advanced through the cannula. The balloon was inflated under fluoroscopic control, then deflated. The void created was backfilled with methyl methacrylate bone cement. There was good position of the cement on fluoroscopic x-ray. The cannulae were removed. The patient was awakened in good condition, taken to recovery. All counts were reported as correct. Estimated blood loss was minimal. TRANSINT:[id number] Voice Confirmation ID: [id number] DOCUMENT ID: [id number] VICENTE ZUNIGA MD at 1310 CC: [id number] DICTATION DATE: 12/10/19 0949 CONSUMER LOAN OFFICER: 12/10/192105 DIS IN 12/10/19 [facility] [address] [place] [address]
== END 2019-12-10 18:51 | DRG 958 ==
LOC: D.ER 04:34 → D.MS 06:40
PROVIDERS: Family Medicine; ADMIT Family Medicine; ATTEND Family Medicine
PROC: 0PS43ZZ Reposition Thoracic Vertebra, Percutaneous Approach (ICD-10-PCS; principal; 2019-12-04)
PROC: 0PU43JZ Supplement Thoracic Vertebra with Synthetic Substitute, Percutaneous Approach (ICD-10-PCS; 2019-12-04)
PROC: 0QS03ZZ Reposition Lumbar Vertebra, Percutaneous Approach (ICD-10-PCS; 2019-12-04)
PROC: 0QU03JZ Supplement Lumbar Vertebra with Synthetic Substitute, Percutaneous Approach (ICD-10-PCS; 2019-12-04)
DX: S22.089A Unspecified fracture of T11-T12 vertebra, initial encounter for closed fracture (principal); S24.154A Other incomplete lesion at T11-T12 level of thoracic spinal cord, initial encounter; S27.899A Unspecified injury of other specified intrathoracic organs, initial encounter; S32.019A Unspecified fracture of first lumbar vertebra, initial encounter for closed fracture; N39.0 Urinary tract infection, site not specified; G72.81 Critical illness myopathy; S22.088A Other fracture of T11-T12 vertebra, initial encounter for closed fracture; I10 Essential (primary) hypertension; K21.9 Gastro-esophageal reflux disease without esophagitis; K58.9 Irritable bowel syndrome, unspecified; R01.1 Cardiac murmur, unspecified

== ENCOUNTER 2019-12-10 18:00 | Inpatient (IN) | payer MEDICARE, SELFPAY ==
[~2019-12-10] VITALS: Ht 167.6 cm; Wt 68.0 kg
--- NOTE | ~2019-12-10 | RHP ---
PATIENT: JOSHUA CARO MEDICAL RECORD: [id number] ACCOUNT: [id number] LOCATION:ACE Do[address] : [birth year] ADMISSION DATE: 12/10/19 REHABILITATION HISTORY AND PHYSICAL EXAMINATION POST ADMISSION PHYSICIAN EXAMINATION ADMITTING DIAGNOSIS: Critical illness myopathy. HISTORY OF PRESENT ILLNESS: The patient is an 84-year-old female patient who is being admitted to the rehab for critical illness myopathy. She presented here on 12/10/2019. 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 The patient is an 84-year-old female patient who presented to the Emergency Room by EMS after experiencing a fall 4 days prior to admit on 12/03. She had slipped and fallen backwards on her right hip. She stated since her fall that she could not ambulate secondary to pain in her back and right hip. The patient had a CT of her lumbar spine without contrast, which showed an acute T12 superior endplate compression fracture with 30% loss of vertebral body height. There was an acute L1 superior endplate retropulsed fragment resulting in some mild canal stenosis. The patient was admitted to the hospital, had cardiology consult during her stay secondary to some abnormal EKGs that were done. The patient was seen by neurosurgery. She underwent kyphoplasty on 12/05 and has been having some pain relief post-procedure. She has been seen in physical and occupational therapy. She has been progressing slowly during her acute hospital stay. She needs to be monitored closely with telemetry. She has had some recent EKG abnormality. She is on IV antibiotics for UTI. She is on an electrolyte protocol. We are monitoring her for proximal weakness, balance deficits, decreased safety awareness, medical complexity, risk for falls and cues for equipment. She has had low endurance, unsteady gait and balance, she fatigues easily, inability to care for herself, and self-care deficits. These are all barriers to her discharge home. She lives at home with her daughter. Was independent with ADLs and mobility prior to this, using a single point cane or rolling walker. She is currently set up for max assist for ADLs, mod assist for mobility. She plans to return home at her prior level of function or better. Comorbidities include weakness, acute T12 superior endplate compression fracture with mildly retropulsed fragments resulting in some stenosis of her spinal canal. 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 She got a heart murmur, hypertension, loss of ADLs, generalized weakness, abnormal EKG. She got a history of hypertension. PAST MEDICAL HISTORY: Significant for hypertension, heart murmur, acid reflux, irritable bowel syndrome. PAST SURGICAL HISTORY: Includes hysterectomy. ALLERGIES: CODEINE. CURRENT MEDICATIONS: Include Rocephin 1 gram q.24 hours. She is on metoprolol 25 mg daily. She is on Zofran 4 mg every 4 hours. She is on Protonix 40 mg daily, melatonin 9 mg at bedtime, [place] 10/325 one tab q.4 hours p.r.n., and Colace 100 mg b.i.d. HABITS: No alcohol or tobacco use. HISTORY AND PHYSICAL [id number] JOSHUA CARO FAMILY HISTORY: Noncontributory. SOCIAL HISTORY: The patient hopes to return back home and get back to her prior level of functioning. REVIEW OF SYSTEMS: GENERAL: Does complain of some weakness and fatigue. HEENT: Denies cold, cough, or congestion. CARDIOVASCULAR: Denies any chest pain. PHYSICAL EXAMINATION: VITAL SIGNS: Stable, afebrile. GENERAL: An elderly female, in no acute distress, alert upon exam. HEENT: Normocephalic, atraumatic. Mucosa moist. NECK: Supple. No lymphadenopathy. LUNGS: Clear in upper rodriguez. No wheezing or rales. HEART: Regular rate and rhythm. She does have a holosystolic murmur. ABDOMEN: Soft, benign, and nondistended. Positive bowel sounds times 4. EXTREMITIES: No clubbing, cyanosis or edema. NEUROLOGIC: She does have proximal muscle weakness. LABORATORY DATA: White count is 15.2, H&H of 13 and 41, and platelet count is noted to be 164. Sodium 137, potassium 4.1, BUN and creatinine of 22 and 0.9, and blood sugar is noted to be 109. ASSESSMENT: This is an 84-year-old female patient admitted to rehab with a working diagnosis of critical illness myopathy. The patient has potential to make improvement. We instituted the following multidisciplinary therapies including, but not limited to physical, occupational, respiratory, speech, nutritional services, prosthetics and orthotics. Given her complex medical condition and risk for more complications, rehabilitation services cannot be provided at a low level of care such as long term facility. PLAN: 1. Admit to [facility] for an inpatient therapy to include the following disciplines: A. Physical therapy to improve gait, all transfer skills and bed mobility to a modified independent level. B. Occupational therapy to a modified independent level. C. Case management to help with discharge planning and placement options. D. Nutrition to assist with nutritional needs. E. Rehabilitation nursing to assist in monitoring the patient's underlying medical conditions and to assist with any type bowel or bladder management. 2. The patient's current medication and medical care will be continued. 3. Place on standard fall precautions. 4. The patient's estimated length of stay is approximately 7-10 days. 5. We will discuss this patient during care team staff meeting this week and will watch her white count closely. TRANSINT:[id number] Voice Confirmation ID: [id number] DOCUMENT ID: [id number] JOSE notes whether there has been none or any medical/functional change since admission: - No change since preadmission screen. HISTORY AND PHYSICAL [id number] JOSHUA CARO attests patient continues to be appropriate for IRF: - Continues to be appropriate. VICENTE CHATTERJEE MD CC: [id number] DICTATION DATE: 12/11/19829 RIM ROLLER SETTER: 12/11/19 0958 ADM IN [facility] [address] [id number]
[~2019-12-10 18:00] MED LIST: COLACE100 MG PO; HYDROCODON-ACE1 EA10 PO; LOPRESSOR25 MG PO; MELATONIN 3 MG1 TAB PO; METOPROLOL TART25 MG; PROTONIX40 MG PO; ROCEPHIN 1 GM/D51 G1 IV; ZOFRAN INJ IV
--- NOTE | 2019-12-10 18:40 | NUR ---
RECEIVED PT TO FLOOR VIA BED ACCOMPANIED BY DAUGHTER AND HOSPITAL STAFF. ORIENTED TO FLOOR, ROOM, BATHROOM AND FUNCTIONS OF REMOTE/NURSE CALL. LEFT FOREARM IV NO REDNESS OR SWELLING NOTED. DRESSING AND SWAB CAP INTACT. ON ROOM AIR. DENIES ANY NEEDS OR PAIN. CALL LIGHT AND WATER WITHIN REACH. FALL PRECAUTIONS IN PLACE. CPOC
[2019-12-10 21:38] VITALS: BP 170/73
[2019-12-10 23:07] VITALS: BP 170/73; BMI 24.2; BMI 25.0
--- NOTE | 2019-12-11 02:44 | NUR ---
PT LYING IN BED EYES CLOSED RESTING QUIETLY. RR EVEN AND UNLABORED. CALL LIGHT WITHIN REACH. FALL PRECAUTIONS IN PLACE. CPOC
[2019-12-11 06:36] LABS: BASOPHILS 0.1 % (0-2); EOSINOPHILS 0.2 % (0-7); HEMOGLOBIN 13.7 g/dL (12-16); IMMATURE GRANULOCYTES 0.4 % (0-5); LYMPHOCYTES 6.5 % (15-50); MCHC 33.4 g/dL (31.0-37.0); MCV 95.8 fL (80.0-100.0); MEAN PLATELET VOLUME 10.6 fL (7.4-10.4); MONOCYTES 8.9 % (2-11); NEUTROPHILS 83.9 % (40-80); PLATELET COUNT 164 10x3/uL (130-400); RBC 4.28 10x6/uL (4.00-5.40); RDW 14.1 % (11.5-14.5); WBC 15.2 10x3/uL (4.8-10.8)
[2019-12-11 06:59] LABS: ANION GAP 15.9 mmol/L (8-16); CALCIUM 8.6 mg/dL (8.5-10.1); CARBON DIOXIDE 24.2 mmol/L (21.0-32.0); CREATININE - SERUM 0.9 mg/dL (0.6-1.3); POTASSIUM - SERUM 4.1 mmol/L (3.5-5.1)
--- NOTE | 2019-12-11 07:56 | NUR ---
SITTING UP IN BED EATING BREAKFAST, DENIES ANY NEEDS AT THIS TIME, C/L AND FLUIDS IN REACH.
[2019-12-11 08:11] VITALS: BP 130/65
--- NOTE | 2019-12-11 09:00 | NUR ---
AWAKE AND ALERT SITTING UP IN BED, DENIES ANY NEEDS AT THIS TIME, ASSESSMENT COMPLETE, C/L AND FLUIDS IN REACH.
--- NOTE | 2019-12-11 10:24 | NUR ---
PATIENT ADMITTED TO REHAB FROM [facility]. DME AT HOME IS A WALKER AND CANE. HER PCP IS DR. ALVARO FARLEY APN. DISCHARGE PLANS ARE FOR PATIENT TO RETURN HOME WITH FAMILY. WILL CONTINUE TO FOLLOW WITH PATIENT.
[2019-12-11 10:49] VITALS: Ht 167.6 cm; Wt 68.0 kg
--- NOTE | 2019-12-11 12:01 | NUR ---
spoke with patient allen, she would like her mother to discharge home on 12/19/19 with [employer] count includes the [facility]. will give daughter a list of private care agencies. will continue to follow with patient.
--- NOTE | 2019-12-11 12:10 | NUR ---
RESTING IN BED WITH EYES CLOSED, RESP EVEN AND UNLABORED, NO S/S OF DISTRESS NOTED, C/L AND FLUIDS IN REACH.
--- NOTE | 2019-12-11 16:16 | NUR ---
UP IN BED WITH SPEECH THERAPY, DENIES ANY NEEDS AT THIS TIME, C/L AND FLUIDS IN REACH.
--- NOTE | 2019-12-11 19:10 | NUR ---
RECEIVED PT LYING IN BED ON LEFT SIDE AWAKE. ALERT AND ORIENTED X4. DENIES ANY PAIN OR NEEDS. NO IV NOTED. WAS INFORMED PT HAS PULLED OUT TWO IV SITES TODAY. PT WILL HAVE TO HAVE IV IN ORDER TO RECEIVE LAST 3 DOSES OF ROCEPHIN. EDUCATED PT ON IMPORTANCE OF KEEPING IV IN, PT STATES SHE DOES NOT MEAN TO PULL OUT HER IV THEY JUST GET CAUGHT AND COME OUT. WILL RESTART IV LATER THIS SHIFT AND SECURE. CALL LIGHT AND WATER WITHIN REACH. FALL PRECAUTIONS IN PLACE. CPOC
[2019-12-11 21:50] VITALS: BP 111/69
--- NOTE | 2019-12-12 00:50 | NUR ---
PT LYING IN BED ON LEFT SIDE EYES CLOSED RESTING QUIETLY. RR EVEN AND UNLABORED. CALL LIGHT AND WATER WITHIN REACH. FALL PRECAUTIONS IN PLACE. CPOC
--- NOTE | 2019-12-12 03:45 | NUR ---
PT LYING IN BED ON RIGHT SIDE EYES CLOSED RESTING QUIETLY. RR EVEN AND UNLABORED. CALL LIGHT WITHIN REACH. FALL PRECAUTIONS IN PLACE. CPOC
[2019-12-12 07:43] LABS: BASOPHILS 0.1 % (0-2); EOSINOPHILS 0.8 % (0-7); HEMOGLOBIN 12.5 g/dL (12-16); IMMATURE GRANULOCYTES 0.4 % (0-5); LYMPHOCYTES 10.2 % (15-50); MCH 31.6 pg (26.0-34.0); MCHC 32.9 g/dL (31.0-37.0); MCV 96.2 fL (80.0-100.0); MEAN PLATELET VOLUME 10.4 fL (7.4-10.4); MONOCYTES 8.1 % (2-11); NEUTROPHILS 80.4 % (40-80); PLATELET COUNT 158 10x3/uL (130-400); RBC 3.95 10x6/uL (4.00-5.40); WBC 13.1 10x3/uL (4.8-10.8)
--- NOTE | 2019-12-12 08:00 | NUR ---
SHIFT ASSMT COMPLETED.
[2019-12-12 08:04] LABS: ANION GAP 14.9 mmol/L (8-16); CALCIUM 8.9 mg/dL (8.5-10.1); CARBON DIOXIDE 22.8 mmol/L (21.0-32.0); CREATININE - SERUM 0.9 mg/dL (0.6-1.3); POTASSIUM - SERUM 3.7 mmol/L (3.5-5.1)
[2019-12-12 08:20] VITALS: BP 149/92
[2019-12-12 08:30] VITALS: BP 132/59
--- NOTE | 2019-12-12 19:05 | NUR ---
RECEIVED PT LYING IN BED ON LEFT SIDE VISITING WITH DAUGHTER. ALERT AND ORIENTED X3. DENIES ANY NEEDS OR PAIN. NO SIGNS OF ACUTE DISTRESS NOTED. CALL LIGHT AND WATER WITHIN REACH. FALL PRECAUTIONS IN PLACE. CPOC
[2019-12-12 21:42] VITALS: BP 127/52
--- NOTE | 2019-12-13 01:04 | NUR ---
PT LYING IN BED EYES CLOSED RESTING QUIETLY RR EVEN AND UNLABORED. CALL LIGHT WITHIN REACH. FALL PRECAUTIONS IN PLACE. CPOC
--- NOTE | 2019-12-13 03:51 | NUR ---
PT LYING IN BED ON LEFT SIDE EYES CLOSED RESTING QUIETLY. RR EVEN AND UNLABORED. CALL LIGHT AND WATER WITHIN REACH. FALL PRECAUTIONS IN PLACE
--- NOTE | 2019-12-13 05:03 | NUR ---
INCONTINENCE CARE PROVIDED. MED URINE INCONTINENCE. BUTTPASTE APPLIED TO BUTTOCKS AND PERIAREA. POSITIONED PT TO LEFT SIDE. DENIES ANY NEEDS OR PAIN. CALL LIGHT AND WATER WITHIN REACH. FALL PRECAUTIONS IN PLACE. CPOC
--- NOTE | 2019-12-13 06:05 | NUR ---
PT LYING IN BED EYES CLOSD RESTING. RR EVEN AND UNLABORED. CALL LIGHT WITHIN REACH. FALL PRECAUTIONS IN PLACE. CPOC
[2019-12-13 08:00] VITALS: BP 126/64
--- NOTE | 2019-12-13 08:00 | NUR ---
SHIFT ASSMT COMPLETED.
--- NOTE | 2019-12-13 12:00 | NUR ---
DAUGHTER HER.ASSISTING WITH LUNCH.
--- NOTE | 2019-12-13 13:09 | NUR ---
SPOKE WITH PATIENT PATIENT DAUGHTER AND SHE WOULD LIKE TO TAKE HER MOTHER HOME ON 12/14/19. WILL CONTINUE TO FOLLOW WITH PATIENT.
--- NOTE | 2019-12-14 03:46 | NUR ---
PT A&O, IN BED AROUSES EASILY TO VOICE, NO NEEDS NOTED, FALL PRECAUTIONS IN PLACE, FLUIDS/CALL LIGHT WITHIN REACH
[2019-12-14 05:36] LABS: BASOPHILS 0.2 % (0-2); EOSINOPHILS 1.4 % (0-7); HEMATOCRIT 36.7 % (36.0-48.0); HEMOGLOBIN 12.1 g/dL (12-16); IMMATURE GRANULOCYTES 0.4 % (0-5); LYMPHOCYTES 9.1 % (15-50); MCH 31.9 pg (26.0-34.0); MCV 96.8 fL (80.0-100.0); MEAN PLATELET VOLUME 10.4 fL (7.4-10.4); MONOCYTES 7.8 % (2-11); NEUTROPHILS 81.1 % (40-80); RBC 3.79 10x6/uL (4.00-5.40); RDW 14.3 % (11.5-14.5); WBC 10.2 10x3/uL (4.8-10.8)
[2019-12-14 05:41] LABS: PLATELET COUNT 194 10x3/uL (130-400)
[2019-12-14 05:52] LABS: ANION GAP 12.7 mmol/L (8-16); CALCIUM 8.7 mg/dL (8.5-10.1); CREATININE - SERUM 0.9 mg/dL (0.6-1.3); POTASSIUM - SERUM 3.7 mmol/L (3.5-5.1)
[2019-12-14 08:00] VITALS: BP 215/87
--- NOTE | 2019-12-14 08:00 | NUR ---
SITTING UP IN BED EATING BREAKFAST, DENIES ANY NEEDS AT THIS TIME, C/L AND FLUIDS IN REACH.
[2019-12-14] MEDS ORDERED: HYDROCODON-ACE1 EA10 PO (10:01)
--- NOTE | 2019-12-14 11:01 | NUR ---
PATIENT D/C VIA W/C WITH DAUGHTER TO HOME, ALL BELONGINGS WITH PATIENT, REVIEWED MEDICATIONS AND HOME HEALTH.
--- NOTE | 2019-12-17 09:44 | NUR ---
PATIENT DISCHARGED HOME Tuesday12/14/19 THAT AFTERNOON. PATIENT HAS NO PCP. WILL SPEAK WITH DAUGHTER ABOUT FINDING A PCP.
== END 2019-12-14 11:00 | disposition home health service (06) | DRG 93 ==
LOC: D.REHAB 18:00
PROVIDERS: ADMIT Emergency Medicine; ATTEND Emergency Medicine
DX: G72.81 Critical illness myopathy (principal); S22.089D Unspecified fracture of T11-T12 vertebra, subsequent encounter for fracture with routine healing; W19.XXXD Unspecified fall, subsequent encounter; I10 Essential (primary) hypertension; R53.1 Weakness; R94.31 Abnormal electrocardiogram [ECG] [EKG]; K21.9 Gastro-esophageal reflux disease without esophagitis; M48.00 Spinal stenosis, site unspecified; R01.1 Cardiac murmur, unspecified; K58.9 Irritable bowel syndrome, unspecified

== ENCOUNTER 2019-12-16 08:52 | Inpatient (IN) | payer MEDICARE ==
[~2019-12-16] VITALS: Ht 167.6 cm; Wt 68.0 kg
--- NOTE | ~2019-12-16 | CN ---
PATIENT NAME:JSOHUA CARO MEDICAL RECORD: [id number] : 35 LOCATION:DFredis D.2127 ADMIT DATE: 12/16/19 ACCOUNT: [id number] CONSULTING PHYSICIAN: CONNIE ALVARADO MD REFERRING PHYSICIAN: VICTOR HUGO BLANCO MD DATE OF CONSULTATION: 12/17/2019 HISTORY OF PRESENT ILLNESS: An 84-year-old lady with a history of hypertension, recent admission for a compression fracture of lumbar spine, was discharged, had a fall at home, admitted and found to be in atrial fibrillation with RVR. No history of atrial fibrillation. She is entirely asymptomatic from this standpoint. We are asked to see her concerning her cardiovascular status. PAST MEDICAL HISTORY: Includes: 1. History of hypertension. 2. Osteoarthritis. 3. Osteoporosis. 4. Gastroesophageal reflux disease. ALLERGIES: CODEINE. MEDICATIONS: Typically include metoprolol 25 b.i.d., Zwingle 10/325 one q.4 p.r.n., Colace 100 mg b.i.d., Protonix 40 mg p.o. daily. SOCIAL HISTORY: Nonsmoker, nondrinker. Has trouble with her ADLs, just came using a cane, questionable walker. Good family support. REVIEW OF SYSTEMS: The patient reports easy bruising but reports no swollen glands. The patient reports no fever, no night sweats, no significant weight gain, no significant weight loss. No significant exercise tolerance. The patient reports no dry eyes, no irritation, no vision change. Patient reports no difficulty hearing and no ear pain. Patient reports no frequent nose bleeds or nose and sinus problems. Patient reports on arm pain on exertion. No shortness of breath while lying down. No history of heart murmur. Patient reports no cough, no wheezing or coughing up blood. Patient reports no abdominal pain, no vomiting. Normal appetite. No diarrhea and not vomiting blood. No nausea and no constipation. Patient reports no incontinence. No difficulty urinating. No hematuria. No increased frequency. Patient reports no muscle aches. No weakness, no arthralgias, no back pain. No swelling of the extremities. Patient reports no abnormal mole, no jaundice, no rashes. Reports no loss of consciousness. No weakness and no numbness. No seizures, dizziness, or headaches. The patient reports no depression, no sleep disturbance, feeling safe in a relationship and no alcohol abuse. Patient reports on fatigue. Reports no runny nose or sinus pressure. No itching, no hives, and no frequent sneezing. PHYSICAL EXAMINATION: GENERAL: Elderly female, in no acute distress. VITAL SIGNS: Blood pressure 189/72, pulse 86 and regular. HEENT: Normocephalic, atraumatic. NECK: No bruits are noted. HEART: Irregular, rate is controlled, II/ systolic ejection murmur. LUNGS: Good air excursion. ABDOMEN: Soft, nontender. EXTREMITIES: Pulses 2+. No edema. CONSULT REPORT [id number] VANIAJOSHUA IMPRESSION: Atrial fibrillation, was in sinus rhythm at least early on last admission. We will add a class III sotalol and hopefully establish normal sinus rhythm. Given overall frail straighten the fact she actually presented to the ER for a fall and the finding of atrial fibrillation was incidental. We would not use DOAC at this point. If remains in fib after loading of sotalol actually I could consider a cardioversion to restore normal sinus rhythm. TRANSINT:[id number] Voice Confirmation ID: [id number] DOCUMENT ID: [id number] CONNIE ALVARADO MD CC: [id number] DICTATION DATE: 12/17/19 1119 VAMP SEAMER: 12/17/19 1415 ADM IN [facility] [address] [place] [address]
--- NOTE | ~2019-12-16 | EC ---
PATIENT:JOSHUA CARO DATE OF SERVICE: 12/16/19 SEX: F MEDICAL RECORD: [id number] DATE OF : 35 LOCATION:D.M2 D.212 AGE OF PATIENT: 84 ADMISSION DATE: 12/16/19 REFERRING PHYSICIAN: INTERPRETING PHYSICIAN: CONNIE ALVARADO MD ECHOCARDIOGRAM REPORT ECHO CHARGES 5 ECHO LIMITED Date: 12/18/19 CLINICAL DIAGNOSIS: NEW ONSET AFIB ECHOCARDIOGRAPHIC MEASUREMENTS (adult normal given) AC root (d.<3.7cm) 0 cm LV Septum d (<1.2 cm> 0 cm Valve Excursion 0 cm LV Septum (systole) 0 cm Left Atria (s.<4.0cm> 0 cm LVPW d(<1.2cm) 0 cm RV (d.<2.3cm) 0 cm LVPW (sytole) 0 cm LV diastole(<5.6CM) 0 cm MV E-F(>70mm/sec) 0 cm LV systole 0 cm LVOT Diameter 0 cm MV exc.(>10mm) 0 cm Est.ejection fraction (50-75%) % DOPPLER: LVIT cm/sec A 0 cm/sec E 0 cm/sec LA 0 cm/sec RVSP 31.8 mmHg LVOT 0 cm/sec AOP1/2T m/s Asc. Ao 0 cm/sec RVOT 0 cm/sec RA 0 cm/sec PA 0 cm/sec AV Gradient Peak 0 mmHg AV Mean 0 mmHg AV Area 0 cm MV Gradient Peak 0 mmHg MV Mean 0 mmHg MV Area 0 cm COMMENTS: Hand Coke Drawer: Lorenzo [facility] Welding Machine Operator Resistance: 3 Dr. Egan TAPE# PACS Pericardial Effusion N DATE OF SERVICE: There limited study includes 2D, color flow. Grossly LVH appears present. LV internal dimensions are normal. Wall motion is normal. EF is greater than or equal to 55%. Aortic valve is tricuspid with good valve excursion. No significant AI. Left atrium grossly appears normal. Mitral valve appears normal with mild MR. Right-sided chambers are grossly normal. Trace TR. TRANSINT:[id number] Voice Confirmation ID: [id number] DOCUMENT ID: [id number] ECHOCARDIOGRAM REPORT [id number] JOSHUA CARO CONNIE ALVARADO MD CC: [id number] DICTATION DATE: 12/19/19 1007 WINDOW CLEANER: 12/19/19 1939 DIS IN 12/18/[address] [facility] [address] [place] [address]
[2019-12-16 09:12] VITALS: BP 132/86
[2019-12-16 09:22] VITALS: BP 139/79
[2019-12-16 10:20] LABS: BASOPHILS 0.2 % (0-2); EOSINOPHILS 0.3 % (0-7); HEMATOCRIT 41.9 % (36.0-48.0); HEMOGLOBIN 13.8 g/dL (12-16); IMMATURE GRANULOCYTES 0.5 % (0-5); MCHC 32.9 g/dL (31.0-37.0); MCV 97.2 fL (80.0-100.0); MONOCYTES 8.1 % (2-11); NEUTROPHILS 81.9 % (40-80); PLATELET COUNT 249 10x3/uL (130-400); RBC 4.31 10x6/uL (4.00-5.40); RDW 14.1 % (11.5-14.5); WBC 13.2 10x3/uL (4.8-10.8)
[2019-12-16 10:28] LABS: APTT 29.9 SECONDS (22.8-39.4); CALC OSMOLALITY 281 mosm/kg (275-300); CALCIUM 8.8 mg/dL (8.5-10.1); CARBON DIOXIDE 26.4 mmol/L (21.0-32.0); CHLORIDE - SERUM 102 mmol/L (98-107); CREATININE - SERUM 0.9 mg/dL (0.6-1.3); GLUCOSE 113 mg/dL (74-106); INR 1.32 (0.85-1.17); POTASSIUM - SERUM 3.7 mmol/L (3.5-5.1); PROTIME 16.3 SECONDS (11.6-15.0); SODIUM 138 mmol/L (136-145); UREA NITROGEN 27 mg/dL (7-18); eGFR NON AFRICAN AMERICAN 63 mL/min (90-120)
[2019-12-16 10:44] LABS: ALBUMIN 2.4 g/dL (3.4-5.0); ALKALINE PHOSPHATASE 138 U/L (30-120); ALT (SGPT) 57 U/L (10-68); CKMB 2.2 U/L (0.0-3.6); CREATINE KINASE 91 UL (21-215); MAGNESIUM - SERUM 2.1 mg/dL (1.8-2.4); PROTEIN - SERUM 7.1 g/dL (6.4-8.2)
[2019-12-16 10:45] LABS: TROPONIN-I < 0.017 ng/mL (0.000-0.060)
[2019-12-16 11:19] VITALS: BP 169/82
[2019-12-16 11:54] VITALS: BP 167/88
[2019-12-16 12:18] VITALS: BP 162/81
--- NOTE | 2019-12-16 13:30 | NUR ---
PATIENT CALLED FOR NURSE ASSISTANCE IN THE ROOM, PATIENT ADVISED THAT SHE HAD HAD AN ACCIDENT WHILE WAITING TO GO THE BATHROOM. PATIENT WAS ASSISTED WITH MARIANGEL-CARE, AFTER LARGE FORMED BROWN STOOL WAS NOTED. COMPLETE LINEN CHANGE WAS PROVIDED, PT CHANDRAKANT WELL, NO DISTRESS NOTED.
--- NOTE | 2019-12-16 14:26 | NUR ---
PATIENT ARRIVED TO UNIT VIA BED AT THIS TIME FROM ED. DAUGHTER AT BEDSIDE WITH PATIENT.
[2019-12-16] MEDS ORDERED: SUPER B COMPLE1 EAC1 PO (14:36)
[2019-12-16 15:49] VITALS: BP 150/80; BMI 24.2
--- NOTE | 2019-12-16 18:27 | NUR ---
RESTING IN BED, NO DISTRESS. CALL LIGHT WITHIN REACH.
--- NOTE | 2019-12-16 19:45 | NUR ---
REPORT RECIEVED AND INITIAL ROUNDS COMPLETED. PT RESTING IN BED WITH DAUGHTER AT BEDSIDE. HARD OF HEARING. ON NECTAR THICK LIQUIDS AND ASPIRATION PRECAUTIONS. UCAF 110 PER TELEMETRY. CARDIZEM DRIP @ 10ML/HR INFUSING TO LEFT WRIST. ALSO STARTED NS @ 50ML/HR. HISTORY OF FREQUENT FALLS SO BED ALARM IN PLACE AND SIDERAILS UP X 2. NEURO CHECKS EVERY 4 HOURS AND ALL PILLS TO BE CRUSHED IN APPLESAUCE. PT CLEAN /DRY AND NO NEEDS AT THIS TIME.
--- NOTE | 2019-12-16 22:30 | NUR ---
ALL BEDTIME MEDS GIVEN CRUSHED IN APPLESAUCE. IV CARDIZEM INFUSING AT 10ML/HR. UCAF PER TELEMETRY. DAUGHTER AT BEDSIDE.
--- NOTE | 2019-12-17 03:58 | NUR ---
AWAKE AND RESTING IN BED WITH NO DISTRESS. DAUGHTER NO LONGER AT BEDSIDE. IVF INFUSING. CARDIZEM INFUSING. PT NOW CONTROLLED AFIB 80-90'S.
--- NOTE | 2019-12-17 04:23 | NUR ---
CARE FOR INCONTINENCE PROVIDED.
--- NOTE | 2019-12-17 04:25 | NUR ---
UNABLE TO COLLECT UA DUE TO INCONTINENCE.
[2019-12-17 05:00] VITALS: BP 142/74
--- NOTE | 2019-12-17 05:35 | NUR ---
PT REFUSED AM LAB. TOLD NURSE AND MANAGER RESOURCE SHE DID NOT NEED IT. THAT SHE WAS FINE.
--- NOTE | 2019-12-17 05:41 | NUR ---
NPO FOR AM CARDIOLOGY CONSULT.
[2019-12-17 08:30] VITALS: BP 189/72
--- NOTE | 2019-12-17 10:21 | NUR ---
Rehab Prescreening Consult recieved and the chart was reviewed. She recently admitted to the ARU on 12/09 and discharged on 12/13. She did not participate and the daughter insisted she wasnt going to and wanted to take her home. She is not eligible to return to the ARU. Yashira Masters RN Clinical liaison, Rehab
[2019-12-17 12:00] VITALS: BP 103/55
[2019-12-17 14:27] VITALS: Ht 167.6 cm; Wt 68.0 kg
--- NOTE | 2019-12-17 14:44 | NUR ---
OT NOTE: PT COMPLETED BED MOB TASKS WITH MIN A. PT COMPLETED ADL MOB WITH MIN A. PT COMPLETED TOILET HYGIENE TASKS WITH MAX A. [id number] THANK YOU,MEY SAMSON
[2019-12-17 14:52] LABS: BASOPHILS 0.3 % (0-2); EOSINOPHILS 2.3 % (0-7); HEMATOCRIT 39.1 % (36.0-48.0); HEMOGLOBIN 12.6 g/dL (12-16); IMMATURE GRANULOCYTES 0.2 % (0-5); LYMPHOCYTES 14.3 % (15-50); MCH 31.3 pg (26.0-34.0); MCHC 32.2 g/dL (31.0-37.0); MEAN PLATELET VOLUME 9.9 fL (7.4-10.4); MONOCYTES 9.1 % (2-11); NEUTROPHILS 73.8 % (40-80); PLATELET COUNT 250 10x3/uL (130-400); RBC 4.03 10x6/uL (4.00-5.40); RDW 14.1 % (11.5-14.5)
[2019-12-17 15:17] LABS: ALBUMIN 2.1 g/dL (3.4-5.0); ALKALINE PHOSPHATASE 114 U/L (30-120); BILIRUBIN - TOTAL 0.67 mg/dL (0.2-1.3); CALC OSMOLALITY 284 mosm/kg (275-300); CALCIUM 7.9 mg/dL (8.5-10.1); CARBON DIOXIDE 24.6 mmol/L (21.0-32.0); CHLORIDE - SERUM 109 mmol/L (98-107); CREATININE - SERUM 0.7 mg/dL (0.6-1.3); GLUCOSE 107 mg/dL (74-106); MAGNESIUM - SERUM 1.8 mg/dL (1.8-2.4); POTASSIUM - SERUM 3.5 mmol/L (3.5-5.1); SODIUM 141 mmol/L (136-145); UREA NITROGEN 23 mg/dL (7-18); eGFR NON AFRICAN AMERICAN 84 mL/min (90-120)
[2019-12-17 15:20] LABS: ALT (SGPT) 42 U/L (10-68); PROTEIN - SERUM 5.3 g/dL (6.4-8.2)
[2019-12-17 16:50] VITALS: BP 161/86
--- NOTE | 2019-12-17 20:41 | NUR ---
IV OUT. SITED 22G X 1 ATTEMPT TO RIGHT HAND AND RESUMMED IV CARDIZEM DRIP AT 10ML/HR AND NS @ 50ML/HR. PT ASSISTED TO BED. DAUGHTER AT BEDSIDE.
--- NOTE | 2019-12-18 02:50 | NUR ---
IV BEEPING TO ROOM TO FIND PT WIDE AWAKE AND HAS PULLED OUT HER NEW IV. DAUGHTER SOUNDLY ASLEEP AT BEDSIDE. PATIENT TELLING NURSE "SHE TAKES MY THINGS" AND OTHER RAMBLING COMMENTS. DAUGHTER ONLY BRIEFLY OPENS EYES AND SAYS "OH YES, THE IV WAS BEEPING". THEN RETURNED TO SLEEP. COMPLETE LINEN/GOWN CHANGE WELL AND PERSONAL CARE PROVIDED. LARGE HEMATOMA TO RIGHT HAND WHERE PREVIOUS IV HAD BEEN. SITED 22G X 1 ATTEMPT TO RIGTH WRIST. CARDIZEM AND NS RESUMMED. ENCOURAGED PT TO TRY AND REST. SR UP X 3, CALL LIGHT IN REACH. BED ALARM ACTIVATED. CPOC.
[2019-12-18 05:24] LABS: BASOPHILS 0.5 % (0-2); EOSINOPHILS 3.7 % (0-7); HEMATOCRIT 35.7 % (36.0-48.0); HEMOGLOBIN 11.6 g/dL (12-16); IMMATURE GRANULOCYTES 0.3 % (0-5); LYMPHOCYTES 21.7 % (15-50); MCH 31.5 pg (26.0-34.0); MCHC 32.5 g/dL (31.0-37.0); MEAN PLATELET VOLUME 10.1 fL (7.4-10.4); MONOCYTES 8.8 % (2-11); PLATELET COUNT 262 10x3/uL (130-400); RBC 3.68 10x6/uL (4.00-5.40); WBC 7.9 10x3/uL (4.8-10.8)
[2019-12-18 06:00] LABS: ALBUMIN 2.1 g/dL (3.4-5.0); ALKALINE PHOSPHATASE 103 U/L (30-120); ALT (SGPT) 36 U/L (10-68); BILIRUBIN - TOTAL 0.69 mg/dL (0.2-1.3); CALC OSMOLALITY 286 mosm/kg (275-300); CARBON DIOXIDE 21.6 mmol/L (21.0-32.0); CHLORIDE - SERUM 110 mmol/L (98-107); CREATININE - SERUM 0.6 mg/dL (0.6-1.3); GLUCOSE 80 mg/dL (74-106); MAGNESIUM - SERUM 1.8 mg/dL (1.8-2.4); POTASSIUM - SERUM 3.4 mmol/L (3.5-5.1); PROTEIN - SERUM 5.2 g/dL (6.4-8.2); SODIUM 143 mmol/L (136-145); UREA NITROGEN 21 mg/dL (7-18); eGFR NON AFRICAN AMERICAN > 90 mL/min (90-120)
--- NOTE | 2019-12-18 07:20 | NUR ---
RECIEVE REPORT. ALERT AND ORIENTED X4. SITTING UP IN BED. DAUGHTER AT BEDSIDE. REQUESTING TO SPEAK WITH REGARDING DISCHARGED. DENIES ANY OTHER NEEDS. CONTINUE PLAN OF CARE AND SAFETY PRECAUTIONS.
[2019-12-18] MEDS ORDERED: BETAPACE 120 M120 MG PO (11:20)
--- NOTE | 2019-12-18 13:41 | MORECARE ---
CASE MANAGEMENT DISCHARGE SUMMARY PATIENT: JOSHUA CARO UNIT: [id number] ADM DATE: 12/16/19 AGE: 84 : 35 SEX: F ROOM/BED: D.9087 AUTHOR: SOLANGE NIELSON PHYSICIAN: REFERRING PHYSICIAN: VICTOR HUGO BLANCO MD DATE OF SERVICE: 12/18/19 Discharge Plan Patient Name: JOSHUA CARO [facility] [facility] 1935 Planned Disposition: Home Anticipated Discharge Date: Discharge Date: Expected LOS: Initial Reviewer: [email or web address] Initial Review Date: 12/16/2019 Generated: 12/18/19 2:41 pm Patient Name: JOSHUA CARO Page [phone] at 1341 All edits/amendments must be made on the electronic document DICTATION DATE: 12/18/19 1341 BANQUET FOOD SERVER: SANJANA 12/18/19 1341 RPT#: [id number] DC DATE: STATUS: ADM IN [facility] [address] [place] [address] END OF REPORT
--- NOTE | 2019-12-18 13:52 | MORECARE ---
CASE MANAGEMENT DISCHARGE SUMMARY PATIENT: JOSHUA CARO UNIT: [id number] ADM DATE: 12/16/19 AGE: 84 : 35 SEX: F ROOM/BED: D.2127 AUTHOR: SOLANGE NIELSON PHYSICIAN: REFERRING PHYSICIAN: VICTOR HUGO BLANCO MD DATE OF SERVICE: 12/18/19 Discharge Plan Patient Name: JOSHUA CARO [facility] [facility] 1935 Planned Disposition: Home Anticipated Discharge Date: Discharge Date: Expected LOS: Initial Reviewer: [email or web address] Initial Review Date: 12/16/2019 Generated: 12/18/19 2:51 pm DCPIA - Discharge Planning Initial Assessment Updated by [email or web address]: Debby Sorenson on 12/18/19 1:47 pm * Is the patient Alert and Oriented? No * PCP NONE [facility] * [facility] * Preadmission Environment Home with Family * ADLs Independent * Equipment Bedside Commode Cane Christopher Solis Walker * List name and contact numbers for known caregivers / representatives who currently or will assist patient after discharge: RALPH CARO [phone] * Verbal permission to speak to the caregivers and representatives has been obtained from the patient. Yes * Community resources currently utilized None * Additional services required to return to the preadmission environment? Yes * Can the patient safely return to the preadmission environment? Yes * Has this patient been hospitalized within the prior 30 days at any hospital? Yes Last DP export: 12/18/19 12:41 pm Patient Name: JOSHUA CARO Page [phone] at 1352 All edits/amendments must be made on the electronic document DICTATION DATE: 12/18/19 1351 CIRCUIT BOARD REPAIR TECHNICIAN: SANJANA 12/18/19 1351 RPT#: [id number] DC DATE: STATUS: ADM IN [facility] [address] [place] [address] END OF REPORT
--- NOTE | 2019-12-18 14:32 | MORECARE ---
CASE MANAGEMENT DISCHARGE SUMMARY PATIENT: JOSHUA CARO UNIT: [id number] ADM DATE: 12/16/19 AGE: 84 : 35 SEX: F ROOM/BED: D.9830 AUTHOR: SOLANGE NIELSON PHYSICIAN: REFERRING PHYSICIAN: VICTOR HUGO BLANCO MD DATE OF SERVICE: 12/18/19 Discharge Plan Patient Name: JOSHUA CARO Facility: [facility]:[place] : 1935 Planned Disposition: Home Anticipated Discharge Date: Discharge Date: Expected LOS: Initial Reviewer: [email or web address] Initial Review Date: 12/16/2019 Generated: 12/18/19 3:31 pm Comments DCP- Discharge Planning Updated by [email or web address]: Debby Sorenson on 12/18/19 1:[address] Patient Name: JOSHUA CARO Admission Status: ER Accout number: [id number] Admission Date: 12-16-2019 : 1935 Admission Diagnosis:UNSPECIFIED ATRIAL FIBRILLATION Attending: VICTOR HUGO BLANCO Current LOS: 2 Anticipated DC Date: Planned Disposition: Home Primary Insurance: MEDICARE PART A ONLY Discharge Planning Comments: CM met with patient to complete initial dc planning assessment. Pt alert and confused. CM educated patient on the CM role and verbal consent given by patient Alexa DTR [phone] to complete assessment. CM verified patient's address, phone number, and emergency contact phone numbers. Patient lives at home with her daughter. At discharge patient plans to return and and feels this is a safe discharge. CM discussed availability of home health, rehab services, and medical equipment. Alexa states her mother only has mcr A and is unable to afford the copay or the jose of B. States she quit her job to take care of her mother and has no income. States they are living on her mothers Social security. Encouraged her to apply for ESTHELA for herself and her mother. Provided DTR with the number to the [facility] local office to apply for benefits, and a list of local government agencies. NENO sighed for [employer] . CM spoke with Jordan at [employer] [phone] and faxed . Spoke with Keith from [employer] to see if he could get pt to qualify for [employer] benefits. The pt is over income at this time. Alexa states she will call [employer] when she gets home to see how much it will cost for a nurse, and PT. Cm spoke to patient and Alexa stating this is not a safe discharge. Alexa stated her mother has declined in the last 3 months. States she can't walk as good any more. Alexa states the patient has 2 canes, a walker, a bedside commode, and grab bars. Transportation provider at discharge will be Alexa. CM will continue to follow and will assist as needed with dc plans/needs. Veneer Manufacturer: Debby Sorenson MSn,RN,CM DCPIA - Discharge Planning Initial Assessment Updated by [email or web address]: Debby Sorenson on 12/18/19 1:47 pm * Is the patient Alert and Oriented? No * PCP NONE [facility] * [facility] * Preadmission Environment Home with Family * ADLs Independent * Equipment Bedside Commode Cane Grab Bars Walker * List name and contact numbers for known caregivers / representatives who currently or will assist patient after discharge: RALPH CARO [phone] * Verbal permission to speak to the caregivers and representatives has been obtained from the patient. Yes * Community resources currently utilized None * Additional services required to return to the preadmission environment? Yes * Can the patient safely return to the preadmission environment? Yes * Has this patient been hospitalized within the prior 30 days at any hospital? Yes Last DP export: 12/18/19 12:52 pm Patient Name: JOSHUA CARO Page [phone] at 1432 All edits/amendments must be made on the electronic document DICTATION DATE: 12/18/19 1431 CORRECTIONAL THERAPY DIRECTOR: SANJANA 12/18/19 143 RPT#: [id number] DC DATE: STATUS: ADM IN [facility] [address] [place] [address] END OF REPORT
--- NOTE | 2019-12-18 14:39 | MORECARE ---
CASE MANAGEMENT DISCHARGE SUMMARY PATIENT: JOSHUA CARO UNIT: [id number] ADM DATE: 12/16/19 AGE: 84 : 35 SEX: F ROOM/BED: D.1151 AUTHOR: SOLANGE NIELSON PHYSICIAN: REFERRING PHYSICIAN: VICTOR HUGO BLANCO MD DATE OF SERVICE: 12/18/19 Discharge Plan Patient Name: JOSHUA CARO Facility: [facility]:[place] : 1935 Planned Disposition: Home Anticipated Discharge Date: Discharge Date: Expected LOS: Initial Reviewer: [email or web address] Initial Review Date: 12/16/2019 Generated: 12/18/19 3:39 pm Comments DCP- Discharge Planning Updated by [email or web address]: Debby Sorenson on 12/18/19 1:[address] Patient Name: JOSHUA CARO Admission Status: ER Accout number: [id number] Admission Date: 12-16-2019 : 1935 Admission Diagnosis:UNSPECIFIED ATRIAL FIBRILLATION Attending: VICTOR HUGO BLANCO Current LOS: 2 Anticipated DC Date: Planned Disposition: Home Primary Insurance: MEDICARE PART A ONLY Discharge Planning Comments: CM met with patient to complete initial dc planning assessment. Pt alert and confused. CM educated patient on the CM role and verbal consent given by patient Alexa DTR [phone] to complete assessment. CM verified patient's address, phone number, and emergency contact phone numbers. Patient lives at home with her daughter. At discharge patient plans to return and and feels this is a safe discharge. CM discussed availability of home health, rehab services, and medical equipment. Alexa states her mother only has mcr A and is unable to afford the copay or the jose of B. States she quit her job to take care of her mother and has no income. States they are living on her mothers Social security. Encouraged her to apply for ESTHELA for herself and her mother. Provided DTR with the number to the [facility] local office to apply for benefits, and a list of local government agencies. NENO sighed for [employer] . CM spoke with Jordan at [employer] [phone] and faxed . Spoke with Keith from [employer] to see if he could get pt to qualify for [employer] benefits. The pt is over income at this time. Alexa states she will call [employer] when she gets home to see how much it will cost for a nurse, and PT. Cm spoke to patient and Alexa stating this is not a safe discharge. Alexa stated her mother has declined in the last 3 months. States she can't walk as good any more. Alexa states the patient has 2 canes, a walker, a bedside commode, and grab bars. Transportation provider at discharge will be Alexa. CM will continue to follow and will assist as needed with dc plans/needs. Liquified Natural [employer] Technician: Debby Sorenson MSn,RN,CM DCPIA - Discharge Planning Initial Assessment Updated by [email or web address]: Debby Sorenson on 12/18/19 1:47 pm * Is the patient Alert and Oriented? No * PCP NONE [facility] * [facility] * Preadmission Environment Home with Family * ADLs Independent * Equipment Bedside Commode Cane Grab Bars Walker * List name and contact numbers for known caregivers / representatives who currently or will assist patient after discharge: RAULDebbie CARO [phone] * Verbal permission to speak to the caregivers and representatives has been obtained from the patient. Yes * Community resources currently utilized None * Additional services required to return to the preadmission environment? Yes * Can the patient safely return to the preadmission environment? Yes * Has this patient been hospitalized within the prior 30 days at any hospital? Yes External Providers External Provider: [facility] Next Contact Date: Service Request Date: Service Type: Resolution: Reviewer: Comments: Last DP export: 12/18/19 1:32 pm Patient Name: JOSHUA CARO Page [phone] at 1439 All edits/amendments must be made on the electronic document DICTATION DATE: 12/18/19 1439 DAIRY DEPARTMENT MANAGER: SANJANA 12/18/19 1439 RPT#: [id number] DC DATE: STATUS: ADM IN [facility] [address] [place] [address] END OF REPORT
--- NOTE | 2019-12-18 15:48 | NUR ---
ALERT AND ORIENTED X4. SITTING UP IN BED. DC RT FA IV TIP INTACT. DISCHARGE INSTRUCTIONS GIVEN VERBALLY AND WRITTEN TO PATIENT AND DAUGHTER. DISCHARGE PAPERS SIGNED ON CHART. ESCORT TO RIDE VIA WHEELCHAIR. REMAINS FREE FROM INJURY.
--- NOTE | 2019-12-18 18:07 | NUR ---
OT NOTE: (AM) PT COMPLETED SUPINE TO SIT WITH CGA. PT COMPLETED EOB SITTING BALANCE WITH CGA. PT COMPLETED SIT TO STAND WITH MIN A. PT COMPLETED BUE AROM EXS TOLERATED. (PM) PT COMPLETED ADL MOB WITH RW REQUIRED MOD A AT TIMES SECONDARY TO DECREASED BALANCE. PT EXHIBITED MODERATE DIFFICULTY WITH WALKER MANAGEMENT AND TENDED TO BUMP INTO OBJECTS IF NOT ASSISTED. PT COMPLETED STATIC STANDING WITH MIN A. PT COMPLETED SIMPLE FACE AND HAND HYGIENE AT SINK LEVEL WITH MIN A. MATHIAS EDUCATED DAUGHTER THAT PT REQUIRED PHYSICAL ASSISTANCE WITH DYNAMIC/STATIC STANDING TASKS. PT EXHIBITED POOR BALANCE AND SAFETY AWARENESS. DAUGHTER ASKED IF MOTHER COULD GO UPSTAIRS INDEPENDENTLY. MATHIAS STATED THAT PT WOULD AT THIS TIME REQUIRE PHYSICAL ASSISTANCE WITH FUNTIONAL TASKS AND MOST ASSUREDLY STAIRS. DAUGHTER STATED PT WOULD NOT BE LEFT ALONE AT ANY TIME.DAUGHTER STATED THAT YES SHE HAS A WALKER BUT DOES NOT UNDERSTAND HOW TO ASSEMBLE. MATHIAS SHARED CONCERNS WITH DC TILT WALL SUPERVISOR. PT WOULD BENEFIT FROM CONTINUED THERAPY SERVICES. [phone] THANK YOU,MEY SAMSON
--- NOTE | 2019-12-19 21:33 | MORECARE ---
CASE MANAGEMENT DISCHARGE SUMMARY PATIENT: JOSHUA CARO UNIT: [id number] ADM DATE: 12/16/19 AGE: 84 : 35 SEX: F ROOM/BED: D.7217 AUTHOR: SOLANGE NIELSON PHYSICIAN: REFERRING PHYSICIAN: VICTOR HUGO BLANCO MD DATE OF SERVICE: 12/19/19 Discharge Plan Patient Name: JOSHUA CARO Facility: [facility]:[place] : 1935 Planned Disposition: Home Anticipated Discharge Date: Discharge Date: 12/18/2019 Expected LOS: Initial Reviewer: [email or web address] Initial Review Date: 12/16/2019 Generated: 12/19/19 10:32 pm Comments DCP- Discharge Planning Updated by [email or web address]: Debby Sorenson on 12/18/19 1:[address] Patient Name: JOSHUA CARO Admission Status: ER Accout number: [id number] Admission Date: 12-16-2019 : 1935 Admission Diagnosis:UNSPECIFIED ATRIAL FIBRILLATION Attending: VICTOR HUGO BLANCO Current LOS: 2 Anticipated DC Date: Planned Disposition: Home Primary Insurance: MEDICARE PART A ONLY Discharge Planning Comments: CM met with patient to complete initial dc planning assessment. Pt alert and confused. CM educated patient on the CM role and verbal consent given by patient Alexa DTR [phone] to complete assessment. CM verified patient's address, phone number, and emergency contact phone numbers. Patient lives at home with her daughter. At discharge patient plans to return and and feels this is a safe discharge. CM discussed availability of home health, rehab services, and medical equipment. Alexa states her mother only has mcr A and is unable to afford the copay or the jose of B. States she quit her job to take care of her mother and has no income. States they are living on her mothers Social security. Encouraged her to apply for ESTHELA for herself and her mother. Provided DTR with the number to the [facility] local office to apply for benefits, and a list of local government agencies. NENO sighed for [employer] . CM spoke with Jordan at [employer] [phone] and faxed . Spoke with Keith from [employer] to see if he could get pt to qualify for [facility] benefits. The pt is over income at this time. Alexa states she will call [employer] when she gets home to see how much it will cost for a nurse, and PT. Cm spoke to patient and Alexa stating this is not a safe discharge. Alexa stated her mother has declined in the last 3 months. States she can't walk as good any more. Alexa states the patient has 2 canes, a walker, a bedside commode, and grab bars. Transportation provider at discharge will be Alexa. CM will continue to follow and will assist as needed with dc plans/needs. Maintenance Worker Municipal: Debby Sorenson MSn,RN,CM DCPIA - Discharge Planning Initial Assessment Updated by [email or web address]: Debby Sorenson on 12/18/19 1:47 pm * Is the patient Alert and Oriented? No * PCP NONE [facility] * [facility] * Preadmission Environment Home with Family * ADLs Independent * Equipment Bedside Commode Cane Grab Bars Walker * List name and contact numbers for known caregivers / representatives who currently or will assist patient after discharge: NAZANINDEMETRIO CARO [phone] * Verbal permission to speak to the caregivers and representatives has been obtained from the patient. Yes * Community resources currently utilized None * Additional services required to return to the preadmission environment? Yes * Can the patient safely return to the preadmission environment? Yes * Has this patient been hospitalized within the prior 30 days at any hospital? Yes Last DP export: 12/18/19 1:39 pm Patient Name: JOSHUA CARO Page [id number] at 2133 All edits/amendments must be made on the electronic document DICTATION DATE: 12/19/192131 GRAPPLE OPERATOR: SANJANA 12/19/192131 RPT#: [id number] DC DATE:12/18/19 STATUS: DIS IN [facility] [address] [place] [address] END OF REPORT
== END 2019-12-18 16:39 | disposition home or self-care (01) | DRG 309 ==
LOC: OBSVTIME → D.OPS 08:52 → D.ER 08:52 → D.M2 11:40 → OBSVTIME 11:40 → D.ER 11:40 → EDSTATUS 13:01 → D.ER 14:14 → D.OPS 15:45 → D.M2 15:45
PROVIDERS: Family Medicine; ADMIT Family Medicine; ATTEND Family Medicine
DX: I48.20 Chronic atrial fibrillation, unspecified (principal); M48.54XA Collapsed vertebra, not elsewhere classified, thoracic region, initial encounter for fracture; J90 Pleural effusion, not elsewhere classified; W19.XXXA Unspecified fall, initial encounter; M51.36 Other intervertebral disc degeneration, lumbar region; I10 Essential (primary) hypertension; K21.9 Gastro-esophageal reflux disease without esophagitis; K58.9 Irritable bowel syndrome, unspecified

== ENCOUNTER 2020-01-20 14:48 | Inpatient (IN) | payer MEDICARE ==
[~2020-01-20] VITALS: Ht 162.6 cm; Wt 65.8 kg
[~2020-01-20 14:48] MED LIST changes: +BETAPACE 120 M120 MG PO; +SUPER B COMPLE1 EAC1 PO
[2020-01-20 15:39] LABS: BASOPHILS 0.1 % (0-2); EOSINOPHILS 0.2 % (0-7); HEMATOCRIT 40.9 % (36.0-48.0); HEMOGLOBIN 13.5 g/dL (12-16); IMMATURE GRANULOCYTES 0.4 % (0-5); LYMPHOCYTES 10.7 % (15-50); MCH 31.6 pg (26.0-34.0); MCV 95.8 fL (80.0-100.0); MEAN PLATELET VOLUME 9.9 fL (7.4-10.4); MONOCYTES 7.1 % (2-11); NEUTROPHILS 81.5 % (40-80); RBC 4.27 10x6/uL (4.00-5.40); RDW 15.1 % (11.5-14.5); WBC 9.5 10x3/uL (4.8-10.8)
[2020-01-20 15:40] LABS: PLATELET COUNT 155 10x3/uL (130-400)
[2020-01-20 15:46] LABS: APTT 27.4 SECONDS (22.8-39.4); INR 1.04 (0.85-1.17); PROTIME 13.6 SECONDS (11.6-15.0)
[2020-01-20 15:55] LABS: CALC OSMOLALITY 282 mosm/kg (275-300); CALCIUM 8.6 mg/dL (8.5-10.1); CARBON DIOXIDE 29.3 mmol/L (21.0-32.0); CHLORIDE - SERUM 103 mmol/L (98-107); GLUCOSE 117 mg/dL (74-106); POTASSIUM - SERUM 4.1 mmol/L (3.5-5.1); SODIUM 141 mmol/L (136-145); UREA NITROGEN 14 mg/dL (7-18); eGFR NON AFRICAN AMERICAN 56 mL/min (90-120)
[2020-01-20 16:00] VITALS: BP 150/83
[2020-01-20 16:07] LABS: BILIRUBIN NEGATIVE (NEGATIVE); GLUCOSE NEGATIVE (NEGATIVE); KETONE NEGATIVE (NEGATIVE); NITRITE POSITIVE (NEGATIVE); UROBILINOGEN 4 mg/dL (NORMAL)
[2020-01-20 16:10] LABS: ALBUMIN 3.1 g/dL (3.4-5.0); ALKALINE PHOSPHATASE 91 U/L (30-120); ALT (SGPT) 26 U/L (10-68); BILIRUBIN - TOTAL 0.67 mg/dL (0.2-1.3); CKMB 0.7 U/L (0.0-3.6); CREATINE KINASE 23 UL (21-215); MAGNESIUM - SERUM 1.6 mg/dL (1.8-2.4); PROTEIN - SERUM 6.4 g/dL (6.4-8.2)
[2020-01-20 16:11] LABS: WHITE CELLS - URINE >50 /hpf (NEGATIVE)
[2020-01-20 16:12] LABS: TROPONIN-I < 0.017 ng/mL (0.000-0.060)
[2020-01-20 16:12] LABS: BACTERIA MANY /hpf (NEGATIVE); EPITHELIAL CELLS 0-5 /hpf (0-5)
[2020-01-20 16:16] LABS: UDS - AMPHET NEGATIVE QUAL (NEGATIVE); UDS - BARB NEGATIVE QUAL (NEGATIVE); UDS - BENZO NEGATIVE QUAL (NEGATIVE); UDS - COCAINE NEGATIVE QUAL (NEGATIVE); UDS - OPIATE NEGATIVE QUAL (NEGATIVE); UDS - PCP NEGATIVE QUAL (NEGATIVE); UDS - THC NEGATIVE QUAL (NEGATIVE)
[2020-01-20 18:16] VITALS: BP 187/96; BMI 24.9
--- NOTE | 2020-01-20 19:40 | NUR ---
LYING IN BED. ALERT AND ORIENTED X2, SELF AND PLACE. CONFUSED. RESP EVEN AND NONLABORED. KATHRYN ALARM ON. BRUISES NOTED TO BUE. INCONT AT TIMES. DENIES PAIN. SALINE LOCK NOTED TO LT AC. SR ELEVATED X2. CL IN REACH.
[2020-01-20 22:01] VITALS: BP 127/76
--- NOTE | 2020-01-21 01:26 | NUR ---
MEDICATED WITH TYLENOL FOR C/O ABD PAIN RATING 4. CL IN REACH. DAUGHTER AT BEDSIDE.
[2020-01-21 03:55] VITALS: BP 150/80
[2020-01-21 05:13] LABS: BASOPHILS 0.1 % (0-2); EOSINOPHILS 1.5 % (0-7); HEMATOCRIT 34.7 % (36.0-48.0); HEMOGLOBIN 11.2 g/dL (12-16); IMMATURE GRANULOCYTES 0.3 % (0-5); LYMPHOCYTES 22.7 % (15-50); MCH 30.7 pg (26.0-34.0); MCHC 32.3 g/dL (31.0-37.0); MCV 95.1 fL (80.0-100.0); MEAN PLATELET VOLUME 10.1 fL (7.4-10.4); MONOCYTES 7.2 % (2-11); NEUTROPHILS 68.2 % (40-80); PLATELET COUNT 159 10x3/uL (130-400); RBC 3.65 10x6/uL (4.00-5.40); RDW 15.3 % (11.5-14.5); WBC 7.8 10x3/uL (4.8-10.8)
--- NOTE | 2020-01-21 05:30 | NUR ---
INCONT OF URINE. PERICARE PERFORMED. PUREWICK PLACED AT THIS TIME.
[2020-01-21 05:33] LABS: ALBUMIN 2.4 g/dL (3.4-5.0); ANION GAP 8.7 mmol/L (8-16); BILIRUBIN - TOTAL 0.44 mg/dL (0.2-1.3); CALCIUM 7.9 mg/dL (8.5-10.1); CARBON DIOXIDE 28.9 mmol/L (21.0-32.0); POTASSIUM - SERUM 3.6 mmol/L (3.5-5.1); PROTEIN - SERUM 5.4 g/dL (6.4-8.2)
[2020-01-21 09:10] VITALS: BP 138/64
[2020-01-21 11:54] VITALS: BP 132/66
[2020-01-21 14:07] VITALS: Ht 162.6 cm; Wt 65.8 kg
[2020-01-21 16:22] VITALS: BP 185/83
[2020-01-21 20:00] VITALS: BP 178/68
--- NOTE | 2020-01-22 03:24 | NUR ---
ALERT AND CONFUSED WITH FAMLIY AT BEDSIDE. NECTOR THICK LIQUIDS IN REACH. UP WITH ASSIST. IV TO LEFT HAND. SITTING UP IN BED EATTING BED CHANGED AFTER INCONINT OF URINE. CALL LIGHT IN REACH ALARM IN PLACE.
[2020-01-22 04:00] VITALS: BP 183/83
--- NOTE | 2020-01-22 04:49 | NUR ---
PATIENT REFUSED LAB DRAW TO SPORTS ANCHOR. NURSE EDUCATED PATIENT AND FAMILY AT BEDSIDE OF NEED FOR LABS. THEY STATED THAT SHE HAD BEEN STUCK SO MUCH. AGAIN EDUCATED PT AND FMAILY ABOUT THE NEED FOR BLOOD TEST TO MONITOR MEDS. ITALIA STATED THAT NO I WANT TO GO HOME TODAY. EDUCATED AGAIN RADHA THE DR NEEDED TO SEE RESULT OF LABS TO DO THIS CONTIUE TO REFUSE.
[2020-01-22 08:00] VITALS: BP 184/94
[2020-01-22 13:31] VITALS: BP 162/72
--- NOTE | 2020-01-22 16:19 | NUR ---
PATIENT RECIEVED LOUIS AT THIS TIME. PATIENT BEING AGGRESSIVE AND DEMANDING AND REFUSING LABS. DAUGHTER AT BEDSIDE. STATED SHE IS HER POA AND WANTS HER TO HAVE THE LABS. PATIENT IS CONFUSED. EXPLAINED TO DAUGHTER THAT WHEN SHE CALMS DOWN AGAIN SHE CAN GET HER LABS DRAWN THEN. VRBALIZED UNDERSTANDING. CALL LIGHT WITHIN REACH.
--- NOTE | 2020-01-22 16:22 | NUR ---
OT NOTE: PT COMPLETED SUPINE TO SIT WITH MIN A. PT COMPLETED EOB SITTING WITH CGA. PT COMPLETED UB HYGIENE TASKS WITH MIN A. PT REQUIRED MIN A FOR MEG SOCKS. PT REQUIRED MOD CUES FOR ATTENTION TO TASKS. [phone] THANK YOU,MEY SAMSON
[2020-01-22 16:46] VITALS: BP 82/39
--- NOTE | 2020-01-22 18:45 | NUR ---
PATIENT IS IN BED WITH EYES CLOSED RESTING QUIETLY. IV INTACT. FAMILY AT BEDSIDE. CALL LIGHT WITHIN REACH.
[2020-01-22 18:51] LABS: BASOPHILS 0.1 % (0-2); EOSINOPHILS 1.9 % (0-7); HEMATOCRIT 40.5 % (36.0-48.0); HEMOGLOBIN 13.4 g/dL (12-16); IMMATURE GRANULOCYTES 0.3 % (0-5); MCH 31.5 pg (26.0-34.0); MCHC 33.1 g/dL (31.0-37.0); MCV 95.3 fL (80.0-100.0); MEAN PLATELET VOLUME 9.8 fL (7.4-10.4); MONOCYTES 10.4 % (2-11); NEUTROPHILS 68.3 % (40-80); PLATELET COUNT 150 10x3/uL (130-400); RBC 4.25 10x6/uL (4.00-5.40); RDW 15.4 % (11.5-14.5)
[2020-01-22 19:05] LABS: ALBUMIN 2.9 g/dL (3.4-5.0); ANION GAP 13.5 mmol/L (8-16); BILIRUBIN - TOTAL 0.38 mg/dL (0.2-1.3); CALCIUM 8.3 mg/dL (8.5-10.1); CARBON DIOXIDE 26.6 mmol/L (21.0-32.0); CREATININE - SERUM 1.1 mg/dL (0.6-1.3); MAGNESIUM - SERUM 1.9 mg/dL (1.8-2.4); POTASSIUM - SERUM 4.1 mmol/L (3.5-5.1); PROTEIN - SERUM 6.1 g/dL (6.4-8.2)
[2020-01-22 20:00] VITALS: BP 168/70
[2020-01-23 04:00] VITALS: BP 143/60
--- NOTE | 2020-01-23 07:00 | NUR ---
CONFUSED, RESTING IN BED. FAMILY AT BEDSIDE. UP WITH ASSIST. CRUSH MEDS WITH APPLESAUCE. IV TO LEFT AC, SL. SITE PATENT WITHOUT REDNESS OR SWELLING. NECTAR THICK LIQUIDS. DENIES ANY NEEDS AT THIS TIME. CALL LIGHT IN REACH. WILL CONTINUE TO MONITOR.
[2020-01-23 07:22] LABS: BASOPHILS 0.1 % (0-2); EOSINOPHILS 2.5 % (0-7); HEMATOCRIT 41.9 % (36.0-48.0); HEMOGLOBIN 13.7 g/dL (12-16); IMMATURE GRANULOCYTES 0.1 % (0-5); LYMPHOCYTES 24.7 % (15-50); MCH 31.4 pg (26.0-34.0); MCHC 32.7 g/dL (31.0-37.0); MCV 95.9 fL (80.0-100.0); MEAN PLATELET VOLUME 10.4 fL (7.4-10.4); MONOCYTES 8.9 % (2-11); NEUTROPHILS 63.7 % (40-80); PLATELET COUNT 169 10x3/uL (130-400); RBC 4.37 10x6/uL (4.00-5.40); RDW 15.5 % (11.5-14.5); WBC 7.2 10x3/uL (4.8-10.8)
[2020-01-23 07:55] LABS: ANION GAP 13.2 mmol/L (8-16); BILIRUBIN - TOTAL 0.49 mg/dL (0.2-1.3); CALCIUM 8.5 mg/dL (8.5-10.1); CARBON DIOXIDE 25.9 mmol/L (21.0-32.0); CREATININE - SERUM 1.1 mg/dL (0.6-1.3); MAGNESIUM - SERUM 2.1 mg/dL (1.8-2.4); POTASSIUM - SERUM 4.1 mmol/L (3.5-5.1); PROTEIN - SERUM 6.1 g/dL (6.4-8.2)
[2020-01-23 10:09] VITALS: BP 89/34
--- NOTE | 2020-01-23 13:18 | NUR ---
OT NOTE: PT ABLE TO PERFORM BED MOB WITH MIN ASSIST; MIN ASSIST WITH TRANSFER TO BS COMMODE; AMB WITH WALKER AND MIN/MOD ASSIST WITH GAIT BELT TO IMPROVE STRENGTH, ENDURANCE , AND BALANCE. PT ALONG SIDE DURING AMBULATION. EDUCATED PT AND DTR ON ENCOURAGING PT TO SEPERATE FEET WHILE WALKING TO PREVENT FALLS AND IMPROVE BALANCE. PT CONFUSED WITH POOR MEMORY AND REQUIRES CONSTANT CUEING. DTR ASKING WHAT WOULD BE THE BEST WAY TO HELP PT STAND UP FROM SITTING POSITION.. SHE STATES THAT SHE PURCHASED A "DISK" THE THE PT HOLDS ON TO SO THAT DTR CAN PULL HER UP TO STANDING POSITION. EXPLAINED TO DTR THAT PT HAS NOT HAD DIFFICULTY STANDING WITH USE OF WALKER WHILE SHE HAS BEEN IN HOSPITAL. ALSO EDUCATED DTR IN PROPER BODY POSITIONING FOR PT TO ALLOW FOR INCREASED EASE IN SIT TO STAND. DTR REPEATED AND VERIFIED UNDERSTANDING OF POSTURAL INSTRUCTIONS DUSTY SANDOVAL, OTR/L [phone]
[2020-01-23 13:36] VITALS: BP 92/45
--- NOTE | 2020-01-23 14:49 | NUR ---
Nutrition follow-up: Diet: Low sodium PO intake ~25% of meals Pt confused and throwing items per nurse Labs reviewed WT: 145# RDN following.
--- NOTE | 2020-01-23 16:06 | NUR ---
PATIENT IS WITHOUT NEEDS.CALL LIGHT IN REACH
[2020-01-23 18:41] VITALS: BP 109/45
--- NOTE | 2020-01-23 18:51 | NUR ---
RESTING IN BED. NO C/O PAIN. NO S/S OF ACUTE DISTRESS NOTED. CALL LIGHT IN REACH.
--- NOTE | 2020-01-23 19:30 | NUR ---
PATIENT ALERT TO SELF, SITUATION, AND THAT SHE IS IN "A HOSPITAL" THOUGH SHE COULD NOT TELL ME THE NAME. ASSESSMENT COMPLETE. PATIENT INCONTINENT OF URINE. TRANSFERRED PATIENT TO CHAIR. DAUGHTER AT BEDISDE. ASSISTING WITH PATIENT. CHANGED PATIENT BED. RETURNED TO BED SAFELY. FALL PRECAUTIONS IN PLACE. CALL LIGHT CLOSE. CPOC.
[2020-01-23 20:00] VITALS: BP 113/48
--- NOTE | 2020-01-23 21:26 | NUR ---
OT NOTE: PT COMPLETED SUPINE TO SIT WITH CGA. PT COMPLETED EOB SITTING WITH CGA. PT COMPLETED UB HYGIENE WITH MIN A AT EOB. PT HAIR IS TANGLED. MATHIAS ASKED IF SHE WANTED TO BRUSH IT...PT STATED NOT NOW. PT IS COOPERATIVE BUT REQUIRED MIN CUES FOR REDIRECTION AND INCREASED UNDERSTANDING OF TASK DEMANDS. 1228-1 THANK YOU,MEY SAMSON
--- NOTE | 2020-01-23 22:15 | NUR ---
ANSWERED PATIENT CALL LIGHT. COMPLAINING OF PAIN IN HER FOOT. ADMINISTERED TYLENOL PER PRN ORDER.
--- NOTE | 2020-01-23 22:55 | NUR ---
PATIENT RESTING WITH NO DISTRESS. DAUGHTER REMAINS AT BEDSIDE. STATES TYLENOL WAS "EFFECTIVE". FALL PRECAUTIONS REMAIN IN PLACE. CPOC.
[2020-01-24 04:00] VITALS: BP 127/58
[2020-01-24 07:25] LABS: BASOPHILS 0.3 % (0-2); EOSINOPHILS 3.3 % (0-7); HEMATOCRIT 34.1 % (36.0-48.0); HEMOGLOBIN 11.3 g/dL (12-16); IMMATURE GRANULOCYTES 0.1 % (0-5); MCH 31.5 pg (26.0-34.0); MCHC 33.1 g/dL (31.0-37.0); MEAN PLATELET VOLUME 10.5 fL (7.4-10.4); MONOCYTES 10.2 % (2-11); NEUTROPHILS 58.1 % (40-80); PLATELET COUNT 174 10x3/uL (130-400); RBC 3.59 10x6/uL (4.00-5.40); RDW 15.7 % (11.5-14.5); WBC 6.9 10x3/uL (4.8-10.8)
[2020-01-24 07:26] LABS: ALBUMIN 2.5 g/dL (3.4-5.0); ANION GAP 12.8 mmol/L (8-16); BILIRUBIN - TOTAL 0.37 mg/dL (0.2-1.3); CALCIUM 8.2 mg/dL (8.5-10.1); CARBON DIOXIDE 25.9 mmol/L (21.0-32.0); MAGNESIUM - SERUM 2.1 mg/dL (1.8-2.4); POTASSIUM - SERUM 3.7 mmol/L (3.5-5.1); PROTEIN - SERUM 5.6 g/dL (6.4-8.2)
[2020-01-24 07:27] LABS: CREATININE - SERUM 1.8 mg/dL (0.6-1.3)
--- NOTE | 2020-01-24 08:00 | NUR ---
LYING IN BED,WITHOUT DISTRESS.CALL LIGHT IN REACH
[2020-01-24 10:13] VITALS: BP 149/50
[2020-01-24 14:34] VITALS: BP 103/46
--- NOTE | 2020-01-24 15:57 | NUR ---
OT NOTE: UPON ENTERING ROOM IN AM, BOTH DTR AND PT WERE ASLEEP.. DTR REMAINED IN CHAIR AND HAD TO BE MOVED BY THERAPIST SO THAT PT COULD WALK INTO HALLWAY WITH WALKER. PT HAD SLEPT THROUGH BREAKFAST BUT DTR STATED THAT PT WOULD EAT AFTER THERAPY WAS FINISHED. PT ABLE TO PERFORM BED MOB WITH CGA; SIT TO STAND WITH CGA/MIN ASSIST; AMB INTO HALLWAY GREATER THAN 150 FT WITH WALKER AND GAIT BELT AND MIN ASSIST WITH WALKER MGMT (FREQ CUES TO SEPERATE FEET WHILE WALKING). NO FATIGUE OR SOB NOTED. PT BACK TO BED WITH SET UP OF TRAY.. DTR ASSISTING PT WITH FEEDING. DUSTY SANDOVAL, OTR/L [phone]
[2020-01-24 18:44] VITALS: BP 110/43
--- NOTE | 2020-01-24 18:44 | NUR ---
RESTING IN BED WITH EYES OPEN. NO C/O PAIN. NO S/S OF ACUTE DISTRESS NOTED. CALL LIGHT IN REACH. DAUGHTER AT BEDSIDE. DENIES ANY NEEDS AT THIS TIME. WILL CONTINUE TO MONITOR.
[2020-01-25 04:00] VITALS: BP 136/65
--- NOTE | 2020-01-25 04:26 | NUR ---
ASSESSED AT THE BEGINNING OF THE SHIFT. PT IS ALERT AND ABLE TO VERBALIZE NEEDS BUT IS A LITTLE CONFUSED. HER DAUGHTER IS IN THE ROOM WITH HER. MEDS WERE CRUSHED AND PUT IN PUDDING AT AND SHE DID WELL. SHE IS INCONT. AND NEEDS TOTAL CARE. SHE HAS BEEN QUIET IN BED MOST OF THE NIGHT AND NO COMPLAINTS HAVE BEEN VOICED.
--- NOTE | 2020-01-25 06:31 | NUR ---
CLEANED UP FROM INCONT. EPISODE AND NEW LINES APPLIED. PT IS AWAKE AND DAUGHTER REMAINS AT THE BEDSIDE.
[2020-01-25 07:07] LABS: BASOPHILS 0.3 % (0-2); EOSINOPHILS 3.4 % (0-7); HEMATOCRIT 35.9 % (36.0-48.0); HEMOGLOBIN 11.8 g/dL (12-16); IMMATURE GRANULOCYTES 0.3 % (0-5); LYMPHOCYTES 31.2 % (15-50); MCH 31.7 pg (26.0-34.0); MCHC 32.9 g/dL (31.0-37.0); MCV 96.5 fL (80.0-100.0); MEAN PLATELET VOLUME 10.7 fL (7.4-10.4); MONOCYTES 10.2 % (2-11); NEUTROPHILS 54.6 % (40-80); PLATELET COUNT 171 10x3/uL (130-400); RBC 3.72 10x6/uL (4.00-5.40); RDW 15.8 % (11.5-14.5); WBC 6.2 10x3/uL (4.8-10.8)
[2020-01-25 07:23] LABS: ALBUMIN 2.6 g/dL (3.4-5.0); ANION GAP 12.8 mmol/L (8-16); BILIRUBIN - TOTAL 0.42 mg/dL (0.2-1.3); CALCIUM 8.4 mg/dL (8.5-10.1); CARBON DIOXIDE 25.8 mmol/L (21.0-32.0); MAGNESIUM - SERUM 2.2 mg/dL (1.8-2.4); POTASSIUM - SERUM 3.6 mmol/L (3.5-5.1); PROTEIN - SERUM 5.8 g/dL (6.4-8.2)
[2020-01-25 07:31] LABS: CREATININE - SERUM 1.3 mg/dL (0.6-1.3)
[2020-01-25 11:02] VITALS: BP 119/95
[2020-01-25] MEDS ORDERED: NAMENDA5 MG PO (12:14)
[2020-01-25] MEDS ORDERED: BACTRIM DS TAB1 EAC1 PO (12:18)
--- NOTE | 2020-01-25 12:40 | NUR ---
OT NOTE: PT COMPLETED SUPINE TO SIT WITH CGA. PT COMPLETED SIT TO STAND WITH CGA. PT COMPLETED ADL MOB WITH R/W REQUIRED MIN A. PT EXHIBITED POOR WALKER MANGEMENT AND IMPAIRED BALANCE. PT REQUIRED VERBAL CUES FOR INCREASED SAFETY AND DECREASE RISK OF FALL. PT COMPLETED BUE AROM AXS WITH FUNCTIONAL TASK WITH NO C/O PAIN. PT COMPLETED FACE HYGIENE AT EOB WITH SETUP. [phone] GALILEA SCHWARTZ COTA
--- NOTE | 2020-01-25 12:57 | CN ---
PATIENT NAME:JOSHUA CARO MEDICAL RECORD: [id number] : [birth year] LOCATION:D.[facility] ADMIT DATE: 01/20/20 ACCOUNT: [id number] CONSULTING PHYSICIAN: NEGRA BUTTS MD REFERRING PHYSICIAN: ANTONIO MCNALLY MD DATE OF CONSULTATION: 01/24/2020 IDENTIFYING DATA: The patient is 84 years old and she was admitted to the hospital secondary to urinary tract infection and atrial fibrillation. She has had no behavior disruptions. Her daughter is concerned that she may be developing a dementia. Apparently, she has had some hallucinatory experiences at home, but they have resolved since she has been in the hospital. On exam, she does indeed have symptoms consistent with a dementing illness. I have explained this to the daughter and the patient. ASSESSMENT: Alzheimer's disease. PLAN: The patient will be given Namenda at a low dose. Her long-term prognosis is guarded. The disease will progress. I suspect the hallucinations were probably largely associated with a urinary tract infection. I do think she needs supervision from her family. The daughter is not working, retired and lives with her. TRANSINT:[id number] Voice Confirmation ID: [id number] DOCUMENT ID: [id number] NEGRA BUTTS MD at 1257 CC: [id number] DICTATION DATE: 01/24/20 1627 COLLECTIONS MANAGER: 01/25/20 0225 ADM IN [facility] [address] [place] [address]
[2020-01-25 13:02] VITALS: BP 142/49
--- NOTE | 2020-01-25 13:57 | NUR ---
IV THERAPY REMOVED FROM LEFT AC WITH TIP INTACT. DISCHARGE INSTRUCTIONS GIVEN. PATIENT AND DAUGHTER TRUONG VERBALIZED UNDERSTANDING. THEY BROUGHT UP WANTING HOME HEALTH. I HAVE TALKED WITH GREG MARQUEZ ABOUT THIS.
--- NOTE | 2020-01-25 14:17 | NUR ---
OT NOTE: PT ASSISTED OT EOB; SIT TO STAND WITH VERY MIN ASSIST WITH USE OF WALKER.. PERFORMED SEVERAL TIMES FOR CONSISTENCY; AMB IN ROOM WITH WALKER AND MIN ASSIST..CONTINIUED CUES FOR SPACING OF FEED AND TACTILE CUES FOR WALKER MGMT. INCONT OF URINE.. MIN ASSIST WITH TOILET HYGIENE. DUSTY SANDOVAL, OTR/L [phone]
--- NOTE | 2020-01-25 14:18 | MORECARE ---
CASE MANAGEMENT DISCHARGE SUMMARY PATIENT: JOSHUA CARO UNIT: [id number] ADM DATE: 01/20/20 AGE: 84 : 35 SEX: F ROOM/BED: D.2211 AUTHOR: SOLANGE NIELSON PHYSICIAN: REFERRING PHYSICIAN: ANTONIO MCNALLY MD DATE OF SERVICE: 01/25/20 Discharge Plan Patient Name: JOSHUA CARO Facility: [facility]:[place] : 1935 Planned Disposition: Home with Home Health Anticipated Discharge Date: Discharge Date: Expected LOS: Initial Reviewer: [id number] Initial Review Date: 01/20/2020 Generated: 01/25/20 3:18 pm Comments DCP- Discharge Planning Updated by [id number]: Guerita Smalls on 01/25/20 1:[address] Patient Name: JOSHUA CARO Admission Status: ER Accout number: [id number] Admission Date: 01-20-2020 : 1935 Admission Diagnosis:URINARY TRACT INFECTION, SITE NOT SPECIFIED Attending: DEQUAN Current LOS: 5 Anticipated DC Date: Planned Disposition: Home with Home Health Primary Insurance: MEDICARE PART A ONLY Discharge Planning Comments: CM MET WITH PATIENT AND DAUGHTER, THEY WOULD LIKE HOME HEALTH, NENO WITH JESUS. I HAVE SPOKE WITH MEGHAN AND THEY WILL SEE HER EITHER TUESDAY OR TUESDAY. PATIENT LIVES WITH HER DAUGHTER. SHE HAS A BSC WALKER, GRAB BARS, CANE. PATIENT FEELS SAFE DISCHARGING HOME. IMM SERVED AND EXPLAINED CM TO FOLLOW NEEDED Scrap Dealer: Guerita Smalls DCPIA - Discharge Planning Initial Assessment Updated by [id number]: Guerita Smalls on 01/25/20 2:13 pm * Is the patient Alert and Oriented? Yes * PCP [facility] * [facility] * Preadmission Environment Home with Family * ADLs Independent * Equipment Bedside Commode Cane Grab Bars Rolling Walker * List name and contact numbers for known caregivers / representatives who currently or will assist patient after discharge: TRUONG ( DAUGHTER) [phone] * Verbal permission to speak to the caregivers and representatives has been obtained from the patient. N/A * Please name any agencies selected above. WILL GET HOME HEALTH * Additional services required to return to the preadmission environment? Yes * Can the patient safely return to the preadmission environment? Yes * Has this patient been hospitalized within the prior 30 days at any hospital? No Coverage Notice Reviewer: [id number] Waqas Smalls Notice Issued Date-Time: 01/25/2020 14:00 Notice Type: IM Discharge Notice Notice Delivered To: Family Member Relationship to Patient: Daughter Driver Salesman Name: TRUONG CARO Delivery Method: HAND - Hand Delivered Ceci Days: Prior Verbal Notification: Recipient Understood Notice: Yes Recipient Signature: Yes Med Rec Note Co-signed by Attending: Coverage Notice Comment: IMM Reviewer: [id number] Waqas Smalls Notice Issued Date-Time: 01/25/2020 14:00 Notice Type: Patient Choice Letter Notice Delivered To: Family Member Relationship to Patient: Daughter Driver Salesman Name: TRUONG Delivery Method: HAND - Hand Delivered Ceci Days: Prior Verbal Notification: Recipient Understood Notice: Yes Recipient Signature: Yes Med Rec Note Co-signed by Attending: Coverage Notice Comment: JESUS Patient Name: JOSHUA CARO Page 14498 at 1418 All edits/amendments must be made on the electronic document DICTATION DATE: 01/25/20 1418 SPOTTER DRIVER: SANJANA 01/25/20 1418 RPT#: [id number] [place] DATE: STATUS: ADM IN [facility] [address] [place] [address] END OF REPORT
--- NOTE | 2020-01-25 14:27 | MORECARE ---
CASE MANAGEMENT DISCHARGE SUMMARY PATIENT: JOSHUA CARO UNIT: [id number] ADM DATE: 01/20/20 AGE: 84 : 35 SEX: F ROOM/BED: D.2211 AUTHOR: SOLANGE NIELSON PHYSICIAN: REFERRING PHYSICIAN: ANTONIO MCNALLY MD DATE OF SERVICE: 01/25/20 Discharge Plan Patient Name: JOSHUA CARO Facility: [facility]:[place] : 1935 Planned Disposition: Home with Home Health Anticipated Discharge Date: Discharge Date: Expected LOS: Initial Reviewer: [id number] Initial Review Date: 01/20/2020 Generated: 01/25/20 3:27 pm Comments DCP- Discharge Planning Updated by [id number]: Guerita Smalls on 01/25/20 1:[address] Patient Name: JOSHUA CARO Admission Status: ER Accout number: [id number] Admission Date: 01-20-2020 : 1935 Admission Diagnosis:URINARY TRACT INFECTION, SITE NOT SPECIFIED Attending: DEQUAN Current LOS: 5 Anticipated DC Date: Planned Disposition: Home with Home Health Primary Insurance: MEDICARE PART A ONLY Discharge Planning Comments: CM MET WITH PATIENT AND DAUGHTER, THEY WOULD LIKE HOME HEALTH, NENO WITH JESUS. I HAVE SPOKE WITH MEGHAN AND THEY WILL SEE HER EITHER TUESDAY OR TUESDAY. PATIENT LIVES WITH HER DAUGHTER. SHE HAS A BSC WALKER, GRAB BARS, CANE. PATIENT FEELS SAFE DISCHARGING HOME. IMM SERVED AND EXPLAINED CM TO FOLLOW NEEDED Heel Seat Filler: Guerita Smalls DCPIA - Discharge Planning Initial Assessment Updated by [id number]: Guerita Smalls on 01/25/20 2:13 pm * Is the patient Alert and Oriented? Yes * PCP [facility] * [facility] * Preadmission Environment Home with Family * ADLs Independent * Equipment Bedside Commode Cane Grab Bars Rolling Walker * List name and contact numbers for known caregivers / representatives who currently or will assist patient after discharge: TRUONG ( DAUGHTER) [phone] * Verbal permission to speak to the caregivers and representatives has been obtained from the patient. N/A * Please name any agencies selected above. WILL GET HOME HEALTH * Additional services required to return to the preadmission environment? Yes * Can the patient safely return to the preadmission environment? Yes * Has this patient been hospitalized within the prior 30 days at any hospital? No External Providers External Provider: [facility] Next Contact Date: Service Request Date: Service Type: Resolution: Reviewer: Comments: Coverage Notice Reviewer: [id number] Waqas Smalls Notice Issued Date-Time: 01/25/2020 14:00 Notice Type: IM Discharge Notice Notice Delivered To: Family Member Relationship to Patient: Daughter Parliamentary Archivist Name: TRUONG CARO Delivery Method: HAND - Hand Delivered Ceci Days: Prior Verbal Notification: Recipient Understood Notice: Yes Recipient Signature: Yes Med Rec Note Co-signed by Attending: Coverage Notice Comment: IMM Reviewer: [id number] Waqas Smalls Notice Issued Date-Time: 01/25/2020 14:00 Notice Type: Patient Choice Letter Notice Delivered To: Family Member Relationship to Patient: Daughter Parliamentary Archivist Name: TRUONG Delivery Method: HAND - Hand Delivered Ceci Days: Prior Verbal Notification: Recipient Understood Notice: Yes Recipient Signature: Yes Med Rec Note Co-signed by Attending: Coverage Notice Comment: JESUS Melendrez DP export: 01/25/20 1:18 p Patient Name: JOSHUA CARO Page 45075 at 1427 All edits/amendments must be made on the electronic document DICTATION DATE: 01/25/201426 MARRIAGE PERFORMER: SANJANA 01/25/201426 RPT#: [id number] DC DATE: STATUS: ADM IN [facility] [address] [place] [address] END OF REPORT
--- NOTE | 2020-01-25 14:36 | MORECARE ---
CASE MANAGEMENT DISCHARGE SUMMARY PATIENT: JOSHUA CARO UNIT: [id number] ADM DATE: 01/20/20 AGE: 84 : 35 SEX: F ROOM/BED: D.2211 AUTHOR: SOLANGE NIELSON PHYSICIAN: REFERRING PHYSICIAN: ANTONIO MCNALLY MD DATE OF SERVICE: 01/25/20 Discharge Plan Patient Name: JOSHUA CARO Facility: [facility]:[place] : 1935 Planned Disposition: Home with Home Health Anticipated Discharge Date: Discharge Date: Expected LOS: Initial Reviewer: [id number] Initial Review Date: 01/20/2020 Generated: 01/25/20 3:36 pm Comments DCP- Discharge Planning Updated by [id number]: Guerita Smalls on 01/25/20 1:[address] I HAVE GIVEN THE DAUGHTER A GOOD RX CARD ALONG WITH THE APPLICATION FOR ASSISTANCE FOR THE NEW NAMENDA DRUG THAT WAS PRESCRIBED FOR HER DAUGHTER STATED UNDERSTANDING DCP- Discharge Planning Updated by [id number]: Guerita Smalls on 01/25/20 1:[address] Patient Name: JOSHUA CARO Admission Status: ER Accout number: [id number] Admission Date: 01-20-2020 : 1935 Admission Diagnosis:URINARY TRACT INFECTION, SITE NOT SPECIFIED Attending: DEQUAN Current LOS: 5 Anticipated DC Date: Planned Disposition: Home with Home Health Primary Insurance: MEDICARE PART A ONLY Discharge Planning Comments: CM MET WITH PATIENT AND DAUGHTER, THEY WOULD LIKE HOME HEALTH, NENO WITH JESUS. I HAVE SPOKE WITH MEGHAN AND THEY WILL SEE HER EITHER TUESDAY OR TUESDAY. PATIENT LIVES WITH HER DAUGHTER. SHE HAS A BSC WALKER, GRAB BARS, CANE. PATIENT FEELS SAFE DISCHARGING HOME. IMM SERVED AND EXPLAINED CM TO FOLLOW NEEDED Client Service Manager: Guerita Smalls DCPIA - Discharge Planning Initial Assessment Updated by [id number]: Guerita Smalls on 01/25/20 2:13 pm * Is the patient Alert and Oriented? Yes * PCP [facility] * [facility] * Preadmission Environment Home with Family * ADLs Independent * Equipment Bedside Commode Cane Grab Bars Rolling Walker * List name and contact numbers for known caregivers / representatives who currently or will assist patient after discharge: TRUONG ( DAUGHTER) [phone] * Verbal permission to speak to the caregivers and representatives has been obtained from the patient. N/A * Please name any agencies selected above. WILL GET HOME HEALTH * Additional services required to return to the preadmission environment? Yes * Can the patient safely return to the preadmission environment? Yes * Has this patient been hospitalized within the prior 30 days at any hospital? No Coverage Notice Reviewer: [email or web address] Waqas Smalls Notice Issued Date-Time: 01/25/2020 14:00 Notice Type: IM Discharge Notice Notice Delivered To: Family Member Relationship to Patient: Daughter Supervisor In Circuit Testing Name: TRUONG CARO Delivery Method: HAND - Hand Delivered Ceci Days: Prior Verbal Notification: Recipient Understood Notice: Yes Recipient Signature: Yes Med Rec Note Co-signed by Attending: Coverage Notice Comment: IMM Reviewer: [id number] Waqas Smalls Notice Issued Date-Time: 01/25/2020 14:00 Notice Type: Patient Choice Letter Notice Delivered To: Family Member Relationship to Patient: Daughter Supervisor In Circuit Testing Name: TRUONG Delivery Method: HAND - Hand Delivered Ceci Days: Prior Verbal Notification: Recipient Understood Notice: Yes Recipient Signature: Yes Med Rec Note Co-signed by Attending: Coverage Notice Comment: JESUS Melendrez DP export: 01/25/20 1:27 p Patient Name: JOSHUA CARO Page [id number] at 1436 All edits/amendments must be made on the electronic document DICTATION DATE: 01/25/20 1436 [facility] ATTENDANT: SANJANA 01/25/20 1436 RPT#: [id number] DC DATE: STATUS: ADM IN [facility] [address] [place] [address] END OF REPORT
--- NOTE | 2020-01-28 14:30 | MORECARE ---
CASE MANAGEMENT DISCHARGE SUMMARY PATIENT: JOSHUA CARO UNIT: [id number] ADM DATE: 01/20/20 AGE: 84 : 35 SEX: F ROOM/BED: D.2211 AUTHOR: NISREENDOC PHYSICIAN: REFERRING PHYSICIAN: ANTONIO MCNALLY MD DATE OF SERVICE: 01/28/20 Discharge Plan Patient Name: JOSHUA CARO Facility: [facility]:[place] : 1935 Planned Disposition: Home with Home Health Anticipated Discharge Date: Discharge Date: 01/25/2020 Expected LOS: Initial Reviewer: [id number] Initial Review Date: 01/20/2020 Generated: 01/28/20 3:29 pm Comments DCP- Discharge Planning Updated by [email or web address]: Guerita Smalls on 01/25/20 1:[address] I HAVE GIVEN THE DAUGHTER A GOOD RX CARD ALONG WITH THE APPLICATION FOR ASSISTANCE FOR THE NEW NAMENDA DRUG THAT WAS PRESCRIBED FOR HER DAUGHTER STATED UNDERSTANDING DCP- Discharge Planning Updated by [id number]: Guerita Smalls on 01/25/20 1:[address] Patient Name: JOSHUA CARO Admission Status: ER Accout number: [id number] Admission Date: 01-20-2020 : 1935 Admission Diagnosis:URINARY TRACT INFECTION, SITE NOT SPECIFIED Attending: DEQUAN Current LOS: 5 Anticipated DC Date: Planned Disposition: Home with Home Health Primary Insurance: MEDICARE PART A ONLY Discharge Planning Comments: CM MET WITH PATIENT AND DAUGHTER, THEY WOULD LIKE HOME HEALTH, NENO WITH JESUS. I HAVE SPOKE WITH MEGHAN AND THEY WILL SEE HER EITHER TUESDAY OR TUESDAY. PATIENT LIVES WITH HER DAUGHTER. SHE HAS A C WALKER, GRAB BARS, CANE. PATIENT FEELS SAFE DISCHARGING HOME. IMM SERVED AND EXPLAINED CM TO FOLLOW NEEDED Civil Celebrant: Guerita Smalls DCPIA - Discharge Planning Initial Assessment Updated by [email or web address]: Guerita Smalls on 01/25/20 2:13 pm * Is the patient Alert and Oriented? Yes * PCP [facility] * Pharmacy [facility] * Preadmission Environment Home with Family * ADLs Independent * Equipment Bedside Commode Cane Grab Bars Rolling Walker * List name and contact numbers for known caregivers / representatives who currently or will assist patient after discharge: TRUONG ( DAUGHTER) [phone] * Verbal permission to speak to the caregivers and representatives has been obtained from the patient. N/A * Please name any agencies selected above. WILL GET HOME HEALTH * Additional services required to return to the preadmission environment? Yes * Can the patient safely return to the preadmission environment? Yes * Has this patient been hospitalized within the prior 30 days at any hospital? No Coverage Notice Reviewer: [id number] Waqas Smalls Notice Issued Date-Time: 01/25/2020 14:00 Notice Type: IM Discharge Notice Notice Delivered To: Family Member Relationship to Patient: Daughter Director Of Corporate Responsibility Name: TRUONG CARO Delivery Method: HAND - Hand Delivered Ceci Days: Prior Verbal Notification: Recipient Understood Notice: Yes Recipient Signature: Yes Med Rec Note Co-signed by Attending: Coverage Notice Comment: IMM Reviewer: [id number] Waqas Smalls Notice Issued Date-Time: 01/25/2020 14:00 Notice Type: Patient Choice Letter Notice Delivered To: Family Member Relationship to Patient: Daughter Director Of Corporate Responsibility Name: TRUONG Delivery Method: HAND - Hand Delivered Ceci Days: Prior Verbal Notification: Recipient Understood Notice: Yes Recipient Signature: Yes Med Rec Note Co-signed by Attending: Coverage Notice Comment: JESUS Melendrez DP export: 01/25/20 1:36 p Patient Name: JOSHUA CARO Page [id number] at 1430 All edits/amendments must be made on the electronic document DICTATION DATE: 01/28/201428 PARTS MANAGER: SANJANA 01/28/20 142 RPT#: [id number] DC DATE:01/25/20 STATUS: DIS IN [facility] [address] [place] [address] END OF REPORT
== END 2020-01-25 15:15 | disposition home health service (06) | DRG 690 ==
LOC: D.ER 14:48 → D.MS 16:50
PROVIDERS: Family Medicine; ADMIT Family Medicine; ATTEND Family Medicine
DX: N39.0 Urinary tract infection, site not specified (principal); I48.20 Chronic atrial fibrillation, unspecified; M48.54XA Collapsed vertebra, not elsewhere classified, thoracic region, initial encounter for fracture; F02.81 Dementia in other diseases classified elsewhere, unspecified severity, with behavioral disturbance; R55 Syncope and collapse; D64.9 Anemia, unspecified; E83.42 Hypomagnesemia; M51.36 Other intervertebral disc degeneration, lumbar region; I10 Essential (primary) hypertension; K21.9 Gastro-esophageal reflux disease without esophagitis; K58.9 Irritable bowel syndrome, unspecified; B96.20 Unspecified Escherichia coli [E. coli] as the cause of diseases classified elsewhere; G30.9 Alzheimer's disease, unspecified; M25.561 Pain in right knee; M19.011 Primary osteoarthritis, right shoulder